=== PATIENT | female | born 1975 | race Hispanic/Latino ===

== ENCOUNTER → 2016-05-04 | Outpatient (CLI) | payer OTHER ==
[~2016-05-04] MED LIST: DRIS50002 PO; FERR325T PO; FLAG500T PO; FLUO10CA8 PO; IBUP60TA PO; MAGN250T14 PO; SUBO8MIS SL; VANC1CAP6 PO; WELLTAB38 PO; ZOFR4TAB3 PO
== END ==
LOC: M SMT 13:15
PROVIDERS: ATTEND Obstetrics & Gynecology
DX: O09.511 Supervision of elderly primigravida, first trimester (principal); Z3A.09 9 weeks gestation of pregnancy

== ENCOUNTER → 2016-05-10 | Outpatient (CLI) | payer OTHER ==
[2016-05-10 13:45] LABS: BASO % 0.4 % (0.0-1.0); EOS # 0.2 K/mm3 (0.0-0.50); EOS % 2.8 % (0.0-3.0); LARGE UNSTAINED CELL # 0.1 K/mm3 (0.0-0.4); LARGE UNSTAINED CELL % 2.3 % (0.0-4.0); LYMPH # 1.4 K/mm3 (1.5-4.5); LYMPH % 25.5 % (24.0-44.0); MEAN CORPUSCULAR HEMOGLOBIN 29.1 pg (27.0-33.0); MEAN CORPUSCULAR HGB CONC 33.1 g/dl (32.0-36.5); MEAN CORPUSCULAR VOLUME 87.9 fl (80.0-96.0); MONO # 0.3 K/mm3 (0.0-0.8); MONO % 5.2 % (0.0-5.0); NEUTROPHILS # 3.4 K/mm3 (1.8-7.7); NEUTROPHILS % 63.9 % (36.0-66.0); PLATELET COUNT, AUTOMATED 212 k/mm3 (150-450); RED CELL DISTRIBUTION WIDTH 15.5 % (11.5-14.5); WHITE BLOOD COUNT 5.3 K/mm3 (4.0-10.0)
[2016-05-10 14:57] LABS: HBsAg Prenatal NEGATIVE (NEGATIVE)
[2016-05-11 12:36] LABS: HIV SCRN NEGATIVE (NEGATIVE); HIV SCRN1 NEGATIVE (NEGATIVE)
[2016-05-11 12:37] LABS: CONTROL LINE INT CTR LINE PRESENT
== END ==
LOC: M SMT 10:35
PROVIDERS: ATTEND Obstetrics & Gynecology
DX: Z34.81 Encounter for supervision of other normal pregnancy, first trimester (principal)

== ENCOUNTER 2016-05-12 16:17 | Emergency (ER) | payer OTHER ==
[2016-05-12 17:44] LABS: BASO # 0.1 K/mm3 (0.0-0.2); BASO % 0.9 % (0.0-1.0); EOS # 0.3 K/mm3 (0.0-0.50); EOS % 3.8 % (0.0-3.0); LARGE UNSTAINED CELL # 0.1 K/mm3 (0.0-0.4); LARGE UNSTAINED CELL % 1.5 % (0.0-4.0); LYMPH # 1.8 K/mm3 (1.5-4.5); LYMPH % 20.2 % (24.0-44.0); MEAN CORPUSCULAR HEMOGLOBIN 28.8 pg (27.0-33.0); MEAN CORPUSCULAR HGB CONC 34.2 g/dl (32.0-36.5); MEAN CORPUSCULAR VOLUME 84.3 fl (80.0-96.0); MONO # 0.4 K/mm3 (0.0-0.8); MONO % 4.3 % (0.0-5.0); NEUTROPHILS # 5.8 K/mm3 (1.8-7.7); NEUTROPHILS % 69.3 % (36.0-66.0); PLATELET COUNT, AUTOMATED 217 k/mm3 (150-450); RED CELL DISTRIBUTION WIDTH 16.6 % (11.5-14.5); WHITE BLOOD COUNT 8.4 K/mm3 (4.0-10.0)
--- NOTE | 2016-05-12 19:00 | REPUSA ---
CLINICAL HISTORY: Vaginal spotting. TECHNIQUE: Realtime sonographic images were obtained in multiple projections. FINDINGS: There is a single intrauterine gestation. The biparietal diameter measures 2.5 cm. This corresponds to a gestational age of 14 weeks 2 days. The abdominal circumference and femur length measure 7.3 cm and 1.5 cm, respectively, and are relativ jordi proportionate to the BPD. The HC-AC ratio is normal. The composite age is 14 weeks 2 days . Estimated weight based on BPD and AC is 92 grams. heart motion was observed. The heart rate is 152 beats per minute. The placenta is anterior and free of the cervical os. The amniotic fluid volume is normal. IMPRESSION: 1. Single, live, intrauterine gestation with a composite gestational age of 14 weeks and 2 days. 2. Estimated date of delivery is 11/08/16. Thank you for your kind referral of this patient. We appreciate the opportunity to participate in thi s patient's care.
--- NOTE | 2016-05-12 19:14 | EDDOCDS ---
Nurse's Notes [facility] Name: Asia Bonner Age: 40 yrs Sex: Female : 1975 Arrival Date: 05/12/2016 Time: 16:17 Bed I2 / M2 Private MD: Tiffani Pires Diagnosis: related conditions, unspecified, second trimester Presentation: 05/12 16:23 Presenting complaint: Patient states: 15 weeks , spotty vaginal bleeding began mlb1 today. Risk factors: The patient reports no loss of conciousness prior to arrival. This patient has not had a hysterectomy. This patient has not begun menopause. Adult Sepsis Screening: The patient does not have new or worsening altered mentation. Patient's respiratory rate is less than 22. Systolic blood pressure is greater than 100. Patient has a qSOFA score of 0- Negative Sepsis Screen. Suicide/Homicide risk assessment- the patient denies having any suicidal and/or homicidal ideations and does not present with any other emotional, behavioral or mental health complaints. Status: Patient is not a rehabilitation services manager or dependent. Transition of care: patient was not received from another setting of care. 16:23 Acuity: REAL Level 3 mlb1 16:23 Method Of Arrival: Walkin/Carried/Asstd mlb1 Triage Assessment: 16:26 General: Appears in no apparent distress, Behavior is anxious, cooperative. Pain: mlb1 Denies pain. Pt Declines HIV testing. : Reports vaginal bleeding that is spotty. Derm: No deficits noted. 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 Suboxone 12-3 mg SL film 1 film once daily 2. Prozac 30 mg Oral once daily 3. Wellbutrin Unknown Oral daily 4. Oral 1 tablet daily - PMHx: Ovarian cyst; psoriatic arthritis; - PSHx: Back surgery; Skin grafts; - Social history: Smoking status: Patient states former smoker of tobacco. No barriers to communication noted, The patient speaks fluent Upper Sorbian, Speaks appropriately for age. - Family history: Not pertinent. - : The pt / caregiver states he / she is not on anticoagulants. Home medication list is obtained from the patient. - Exposure Risk Screening:: None identified. Screenin:32 Screening information is obtained from the patient. Fall risk: No risks identified. ck1 Assistance ADL's: requires no assistance with activities of daily living. Abuse/DV Screen: The patient / caregiver reports he/she is: not in a situation that causes fear, pain or injury. Nutritional screening: No deficits noted. Advance Directives: Currently, there is no health care proxy. home support is adequate. Assessment: 17:31 General: Appears in no apparent distress, comfortable, Behavior is appropriate for age, ck1 cooperative. Pain: Location: pelvis Pain currently is 6 out of 10 on a pain scale. Quality of pain is described as crampy. Neurological: No deficits noted. : Reports vaginal bleeding that is spotty. Derm: Skin is intact, is healthy with good turgor, Skin is pink, warm & dry. 19:12 General: Appears in no apparent distress, comfortable, Behavior is appropriate for age, ck1 cooperative. Pain: Denies pain. Neurological: Level of Consciousness is awake, alert, obeys commands, Oriented to person, place, time. Respiratory: No deficits noted. : Reports vaginal bleeding that is spotty. Derm: Skin is intact, is healthy with good turgor, Skin is pink, warm & dry. Vital Signs: 16:19 BP 134 / 73; Pulse 99; Resp 16; Temp 98.2(O); Pulse Ox 99% ; Weight 70.31 kg; Height 5 cmb ft. 2 in. (157.48 cm); Pain 6/10; 19:08 BP 123 / 59; Pulse 72; Resp 18; Temp 99.6; Pulse Ox 96% ; Pain 0/10; ajs 16:19 Body Mass Index 28.35 (70.31 kg, 157.48 cm) [facility] Vitals: 16:19 Log In Time: May 12, 2016 at 16:17. [facility] ED Course: 16:19 Patient visited by Alyx Silva. b 16:19 Tiffani Pires is Private Physician. cmb 16:19 Patient moved to Waiting cmb 16:21 RN notified that patient meets Red Flag criteria. cmb 16:22 Patient moved to Pre RCE cmb 16:23 Patient visited by Ander Aguila RN. mlb1 16:23 Triage Initiated mlb1 16:26 Patient visited by Ander Aguila RN. mlb1 16:56 Patient moved to Triage 2 jf3 17:10 Isai Barton PA-C is PHCP. ar2 17:10 Negro Rodriguez MD is Attending Physician. ar2 17:10 Patient visited by Isai Barton PA-C. ar2 17:20 Patient moved to I2 / M2 mlb1 17:26 Patient visited by Sully Barbosa,ANICETO. ck1 17:31 Urine Culture Sent. rs6 17:31 UA Sent. rs6 17:31 Rh Only Sent. ck1 17:31 CBC with Diff Sent. ck1 17:32 The patient / caregiver is instructed regarding the plan of care and ED course. ck1 17:32 No IV's were initiated during this patient's visit. ck1 17:46 Patient moved to Ultrasound am17 17:53 Assist provider with pelvic exam: Set up pelvic tray. Specimens sent to lab. Performed kc3 by Isai Barton PA-C Patient tolerated well. 17:55 GC & Chlamydia Amplification Sent. kc3 17:55 Wet Prep Sent. kc3 18:03 Patient moved to I2 / M2 am17 18:05 Patient visited by Sully Barbosa RN. ck1 18:06 PHCP role handed off by Isai Barton PA-C btw 18:06 Brennen Lion PA is PHCP. btw 18:27 [facility] Payment Agreement was scanned into makemoji and attached to record. gjb 18:38 Patient visited by Sully Barbosa RN. ck1 19:07 Lucrecia Odell MD is Referral Physician. btw Order Results: Lab Order: CBC with Diff; SPEC'M 05/12/16 17:31 Test: WHITE BLOOD COUNT; Value: 8.4; Range: 4.0-10.0; Units: K/mm3; Status: F Test: RED BLOOD COUNT; Value: 3.83; Range: 4.00-5.40; Abnormal: Below low normal; Units: M/mm3; Status: F Test: HEMOGLOBIN; Value: 11.0; Range: 12.0-16.0; Abnormal: Below low normal; Units: g/dl; Status: F Test: HEMATOCRIT; Value: 32.2; Range: 36.0-47.0; Abnormal: Below low normal; Units: %; Status: F Test: MEAN CORPUSCULAR VOLUME; Value: 84.3; Range: 80.0-96.0; Units: fl; Status: F Test: MEAN CORPUSCULAR HEMOGLOBIN; Value: 28.8; Range: 27.0-33.0; Units: pg; Status: F Test: MEAN CORPUSCULAR HGB CONC; Value: 34.2; Range: 32.0-36.5; Units: g/dl; Status: F Test: RED CELL DISTRIBUTION WIDTH; Value: 16.6; Range: 11.5-14.5; Abnormal: Above high normal; Units: %; Status: F Test: PLATELET COUNT, AUTOMATED; Value: 217; Range: 150-450; Units: k/mm3; Status: F Test: NEUTROPHILS %; Value: 69.3; Range: 36.0-66.0; Abnormal: Above high normal; Units: %; Status: F Test: LYMPH %; Value: 20.2; Range: 24.0-44.0; Abnormal: Below low normal; Units: %; Status: F Test: MONO %; Value: 4.3; Range: 0.0-5.0; Units: %; Status: F Test: EOS %; Value: 3.8; Range: 0.0-3.0; Abnormal: Above high normal; Units: %; Status: F Test: BASO %; Value: 0.9; Range: 0.0-1.0; Units: %; Status: F Test: LARGE UNSTAINED CELL %; Value: 1.5; Range: 0.0-4.0; Units: %; Status: F Test: NEUTROPHILS #; Value: 5.8; Range: 1.8-7.7; Units: K/mm3; Status: F Test: LYMPH #; Value: 1.8; Range: 1.5-4.5; Units: K/mm3; Status: F Test: MONO #; Value: 0.4; Range: 0.0-0.8; Units: K/mm3; Status: F Test: EOS #; Value: 0.3; Range: 0.0-0.50; Units: K/mm3; Status: F Test: BASO #; Value: 0.1; Range: 0.0-0.2; Units: K/mm3; Status: F Test: LARGE UNSTAINED CELL #; Value: 0.1; Range: 0.0-0.4; Units: K/mm3; Status: F Lab Order: Rh Only; SPEC'M 05/12/16 17:31 Test: RH; Value: POSITIVE; Status: F Lab Order: UA; SPEC'M 05/12/16 17:24 Test: APPEARANCE, URINE; Value: HAZY; Range: CLEAR; Status: F Test: COLOR, URINE; Value: YELLOW; Range: YELLOW; Status: F Test: PH,URINE; Value: 7.0; Range: 5.0-9.0; Units: UNITS; Status: F Test: SPECIFIC GRAVITY URINE AUTO; Value: 1.013; Range: 1.002-1.035; Status: F Test: PROTEIN, URINE AUTO; Value: NEGATIVE; Range: NEGATIVE; Units: mg/dL; Status: F Test: GLUCOSE, URINE (UA) AUTO; Value: NEGATIVE; Range: NEGATIVE; Units: mg/dL; Status: F Test: KETONE, URINE AUTO; Value: NEGATIVE; Range: NEGATIVE; Units: mg/dL; Status: F Test: UROBILINOGEN, URINE AUTO; Value: 0.2; Range: 0.0-2.0; Units: mg/dL; Status: F Test: BILIRUBIN, URINE AUTO; Value: NEGATIVE; Range: NEGATIVE; Status: F Test: NITRITE, URINE AUTO; Value: NEGATIVE; Range: NEGATIVE; Status: F Test: LEUKOCYTE ESTERASE, URINE AUTO; Value: TRACE; Range: NEGATIVE; Abnormal: Above high normal; Status: F Test: BLOOD, URINE BLOOD; Value: NEGATIVE; Range: NEGATIVE; Status: F Test: WBC, URINE AUTO; Value: 6; Range: 0-3; Abnormal: Above high normal; Units: /HPF; Status: F Test: RBC, URINE AUTO; Value: 13; Range: 0-3; Abnormal: Above high normal; Units: /HPF; Status: F Test: BACTERIA, URINE AUTO; Value: 1+; Range: NEGATIVE; Abnormal: Above high normal; Status: F Test: SQUAMOUS EPITHELIAL CELL UR AU; Value: 2; Range: 0-6; Units: /HPF; Status: F Test: MUCUS, URINE; Value: SMALL; Range: NEGATIVE; Status: F Test: HYALINE CAST, URINE AUTO; Value: 0; Range: 0-1; Units: /LPF; Status: F Lab Order: Wet Prep; SPEC'M 05/12/16 17:53 Test: WET PREP; Value: WET PREP RESULT; Status: F Test: WET PREP; Value: MANY EPITHELIAL CELLS PRESENT; Status: F Test: WET PREP; Value: MANY WBC; Status: F Test: WET PREP; Value: MANY LONG RODS PRESENT; Status: F Test: WET PREP; Value: MANY SHORT RODS PRESENT; Status: F Outcome: 19:08 Discharge ordered by Provider. btw 19:11 Discharge Assessment: Patient awake, alert and oriented x 3. No cognitive and/or ck1 functional deficits noted. Patient verbalized understanding of disposition instructions. patient administered narcotics - no. The following High Risk Discharge criteria are identified: None. Condition: stable. Property :Personal belongings accompany Pt. 19:11 Ultrasound Study completed. ck1 19:13 Patient left the ED. ck1 Signatures: Ander Aguila RN RN mlb1 Sully BarbosaRN RN ck1 Isai Barton PA-C PA-C ar2 Brennen Lion PA PA btw Radha Espino [place] cmb Moran, Ashley am17 Rubi Siegel, TONA ORE TESTER rs6 Janina Weber RN RN kc3 Job Massey RN RN jf3 Ruth Ayala MTDD
--- NOTE | 2016-05-12 19:14 | EDDOCDS ---
Physician Documentation [facility] Name: Asia Bonner Age: 40 yrs Sex: Female : 1975 Arrival Date: 05/12/2016 Time: 16:17 Bed I2 / M2 Private MD: Tiffani Pires Disposition: 05/12/16 19:08 Discharged to Home/Self Care. Impression: related conditions, unspecified, second trimester. - Condition is Stable. - Discharge Instructions: Abdominal Pain During , [id number], Second Trimester of , Zrrh-cw-Bsss. - Medication Reconciliation, Local Pharmacy Hours form. - Follow up: Lucrecia Odell MD; When: 2 - 3 days; Reason: Further diagnostic work-up, Recheck today's complaints, Continuance of care. - Problem is new. - Symptoms are unchanged. Historical: - Allergies: Latex (Rash); SULFA (SULFONAMIDES) (Swelling); - Home Meds: 1. Suboxone 12-3 mg SL film 1 film once daily 2. Prozac 30 mg Oral once daily 3. Wellbutrin Unknown Oral daily 4. Oral 1 tablet daily - PMHx: Ovarian cyst; psoriatic arthritis; - PSHx: Back surgery; Skin grafts; - Social history: Smoking status: Patient states former smoker of tobacco. No barriers to communication noted, The patient speaks fluent Cymraes, Speaks appropriately for age. - Family history: Not pertinent. - : The pt / caregiver states he / she is not on anticoagulants. Home medication list is obtained from the patient. - Exposure Risk Screening:: None identified. 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 2 in. (157.48 cm); Pain 6/10; 19:08 BP 123 / 59; Pulse 72; Resp 18; Temp 99.6; Pulse Ox 96% ; Pain 0/10; ajs 16:19 Body Mass Index 28.35 (70.31 kg, 157.48 cm) cmb MDM: 17:16 Undress patient appropriately for examination ordered. ar2 17:16 Set up pelvic ordered. ar2 17:17 CBC with Diff Ordered. EDMS 17:17 UA Ordered. EDMS 17:17 Urine Culture Ordered. EDMS 17:17 US Obs Single Gest Ordered. EDMS 17:17 Rh Only Ordered. EDMS 17:52 GC & Chlamydia Amplification Ordered. EDMS 17:53 Wet Prep Ordered. EDMS 18:15 CBC with Diff Reviewed. btw 18:15 UA Reviewed. btw 18:15 Rh Only Reviewed. btw 18:15 Wet Prep Reviewed. btw 18:26 Financial registration complete. gjb 18:27 [facility] Payment Agreement was scanned into Gig[employer] and attached to record. gjb Signatures: Dispatcher [employer] Ander Desai RN RN mlb1 Sully Barobsa RN RN ck1 Isai Barton PA-C PA-C ar2 Brennen Lion PA PA btw Beck, Gabriela gjb The chart was reviewed and I authenticate all verbal orders and agree with the evaluation and treatment provided.Attachments: 18:27 [facility] Payment Agreement gjb MTDD
--- NOTE | 2016-05-14 20:14 | EDDOCDS ---
Physician Documentation [facility] Name: Asia Bonner Age: 40 yrs Sex: Female : 1975 Arrival Date: 05/12/2016 Time: 16:17 Bed I2 / M2 Private MD: Tiffani Pires Disposition: 05/12/16 19:08 Discharged to Home/Self Care. Impression: related conditions, unspecified, second trimester. - Condition is Stable. - Discharge Instructions: Abdominal Pain During , Lzma-xj-[id number], Second Trimester of , Xcia-mc-Nwxr. - Medication Reconciliation, Local Pharmacy Hours form. - Follow up: Lucrecia Odell MD; When: 2 - 3 days; Reason: Further diagnostic work-up, Recheck today's complaints, Continuance of care. - Problem is new. - Symptoms are unchanged. Historical: - Allergies: Latex (Rash); SULFA (SULFONAMIDES) (Swelling); - Home Meds: 1. Suboxone 12-3 mg SL film 1 film once daily 2. Prozac 30 mg Oral once daily 3. Wellbutrin Unknown Oral daily 4. Oral 1 tablet daily - PMHx: Ovarian cyst; psoriatic arthritis; - PSHx: Back surgery; Skin grafts; - Social history: Smoking status: Patient states former smoker of tobacco. No barriers to communication noted, The patient speaks fluent Czech, Speaks appropriately for age. - Family history: Not pertinent. - : The pt / caregiver states he / she is not on anticoagulants. Home medication list is obtained from the patient. - Exposure Risk Screening:: None identified. 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 2 in. (157.48 cm); Pain 6/10; 19:08 BP 123 / 59; Pulse 72; Resp 18; Temp 99.6; Pulse Ox 96% ; Pain 0/10; ajs 16:19 Body Mass Index 28.35 (70.31 kg, 157.48 cm) cmb MDM: 17:16 Undress patient appropriately for examination ordered. ar2 17:16 Set up pelvic ordered. ar2 17:17 CBC with Diff Ordered. EDMS 17:17 UA Ordered. EDMS 17:17 Urine Culture Ordered. EDMS 17:17 US Obs Single Gest Ordered. EDMS 17:17 Rh Only Ordered. EDMS 17:52 GC & Chlamydia Amplification Ordered. EDMS 17:53 Wet Prep Ordered. EDMS 18:15 CBC with Diff Reviewed. btw 18:15 UA Reviewed. btw 18:15 Rh Only Reviewed. btw 18:15 Wet Prep Reviewed. btw 18:26 Financial registration complete. b : [facility] Payment Agreement was scanned into autoGraph and attached to record. b 05/13 10: T-Sheet-- Draft Copy was scanned into autoGraph and attached to record. gb 11: Radiology Report was scanned into autoGraph and attached to record. gb Signatures: Dispatcher [employer] EDKelly Evans, Reg Reg gb Ander Aguila RN RN mlb1 Sully BarbosaRN RN ck1 Isai Barton PA-C PAErrol ar2 Brennen Lion PA PA btw Beck, Gabriela gjb The chart was reviewed and I authenticate all verbal orders and agree with the evaluation and treatment provided.Attachments: 05/12 17: [facility] Payment Agreement [facility] 05/13 11:42 T-Sheet-- Draft Copy gb Chart Complete MTDD
--- NOTE | 2016-05-14 20:14 | EDDOCDS ---
Nurse's Notes [facility] Name: Asia Bonner Age: 40 yrs Sex: Female : 1975 Arrival Date: 05/12/2016 Time: 16:17 Bed I2 / M2 Private MD: Tiffani Pires Diagnosis: related conditions, unspecified, second trimester Presentation: 05/12 16:23 Presenting complaint: Patient states: 15 weeks , spotty vaginal bleeding began mlb1 today. Risk factors: The patient reports no loss of conciousness prior to arrival. This patient has not had a hysterectomy. This patient has not begun menopause. Adult Sepsis Screening: The patient does not have new or worsening altered mentation. Patient's respiratory rate is less than 22. Systolic blood pressure is greater than 100. Patient has a qSOFA score of 0- Negative Sepsis Screen. Suicide/Homicide risk assessment- the patient denies having any suicidal and/or homicidal ideations and does not present with any other emotional, behavioral or mental health complaints. 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 Transition of care: patient was not received from another setting of care. 16:23 Acuity: REAL Level 3 mlb1 16:23 Method Of Arrival: Walkin/Carried/Asstd mlb1 Triage Assessment: 16:26 General: Appears in no apparent distress, Behavior is anxious, cooperative. Pain: mlb1 Denies pain. Pt Declines HIV testing. : Reports vaginal bleeding that is spotty. Derm: No deficits noted. 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 Suboxone 12-3 mg SL film 1 film once daily 2. Prozac 30 mg Oral once daily 3. Wellbutrin Unknown Oral daily 4. Oral 1 tablet daily - PMHx: Ovarian cyst; psoriatic arthritis; - PSHx: Back surgery; Skin grafts; - Social history: Smoking status: Patient states former smoker of tobacco. No barriers to communication noted, The patient speaks fluent Slovenian, Speaks appropriately for age. - Family history: Not pertinent. - : The pt / caregiver states he / she is not on anticoagulants. Home medication list is obtained from the patient. - Exposure Risk Screening:: None identified. Screenin:32 Screening information is obtained from the patient. Fall risk: No risks identified. ck1 Assistance ADL's: requires no assistance with activities of daily living. Abuse/DV Screen: The patient / caregiver reports he/she is: not in a situation that causes fear, pain or injury. Nutritional screening: No deficits noted. Advance Directives: Currently, there is no health care proxy. home support is adequate. Assessment: 17:31 General: Appears in no apparent distress, comfortable, Behavior is appropriate for age, ck1 cooperative. Pain: Location: pelvis Pain currently is 6 out of 10 on a pain scale. Quality of pain is described as crampy. Neurological: No deficits noted. : Reports vaginal bleeding that is spotty. Derm: Skin is intact, is healthy with good turgor, Skin is pink, warm & dry. 19:12 General: Appears in no apparent distress, comfortable, Behavior is appropriate for age, ck1 cooperative. Pain: Denies pain. Neurological: Level of Consciousness is awake, alert, obeys commands, Oriented to person, place, time. Respiratory: No deficits noted. : Reports vaginal bleeding that is spotty. Derm: Skin is intact, is healthy with good turgor, Skin is pink, warm & dry. Vital Signs: 16:19 BP 134 / 73; Pulse 99; Resp 16; Temp 98.2(O); Pulse Ox 99% ; Weight 70.31 kg; Height 5 cmb ft. 2 in. (157.48 cm); Pain 6/10; 19:08 BP 123 / 59; Pulse 72; Resp 18; Temp 99.6; Pulse Ox 96% ; Pain 0/10; ajs 16:19 Body Mass Index 28.35 (70.31 kg, 157.48 cm) [facility] Vitals: 16:19 Log In Time: May 12, 2016 at 16:17. [facility] ED Course: 16:19 Patient visited by Alyx Silva. b 16:19 Tiffani Pires is Private Physician. cmb 16:19 Patient moved to Waiting cmb 16:21 RN notified that patient meets Red Flag criteria. cmb 16:22 Patient moved to Pre RCE cmb 16:23 Patient visited by Ander Aguila RN. mlb1 16:23 Triage Initiated mlb1 16:26 Patient visited by Ander Aguila RN. mlb1 16:56 Patient moved to Triage 2 jf3 17:10 Isai Barton PA-C is PHCP. ar2 17:10 Negro Rodriguez MD is Attending Physician. ar2 17:10 Patient visited by Isai Barton PA-C. ar2 17:20 Patient moved to I2 / M2 mlb1 17:26 Patient visited by Sully Barbosa,ANICETO. ck1 17:31 Urine Culture Sent. rs6 17:31 UA Sent. rs6 17:31 Rh Only Sent. ck1 17:31 CBC with Diff Sent. ck1 17:32 The patient / caregiver is instructed regarding the plan of care and ED course. ck1 17:32 No IV's were initiated during this patient's visit. ck1 17:46 Patient moved to Ultrasound am17 17:53 Assist provider with pelvic exam: Set up pelvic tray. Specimens sent to lab. Performed kc3 by Isai Barton PA-C Patient tolerated well. 17:55 GC & Chlamydia Amplification Sent. kc3 17:55 Wet Prep Sent. kc3 18:03 Patient moved to I2 / M2 am17 18:05 Patient visited by Sully Barbosa,ANICETO. ck1 18:06 PHCP role handed off by Isai Barton PA-C btw 18:06 Brennen Lion PA is PHCP. btw 18:27 [facility] Payment Agreement was scanned into Viveve and attached to record. gjb 18:38 Patient visited by Sully Barbosa RN. ck1 19:07 Lucrecia Odell MD is Referral Physician. btw 19:19 US Obs Single Gest Returned. EDMS 05/13 11:42 T-Sheet-- Draft Copy was scanned into Viveve and attached to record. gb 11:42 Radiology Report was scanned into Viveve and attached to record. gb Order Results: Lab Order: CBC with Diff; SPEC'M 05/12/16 17:31 Test: WHITE BLOOD COUNT; Value: 8.4; Range: 4.0-10.0; Units: K/mm3; Status: F Test: RED BLOOD COUNT; Value: 3.83; Range: 4.00-5.40; Abnormal: Below low normal; Units: M/mm3; Status: F Test: HEMOGLOBIN; Value: 11.0; Range: 12.0-16.0; Abnormal: Below low normal; Units: g/dl; Status: F Test: HEMATOCRIT; Value: 32.2; Range: 36.0-47.0; Abnormal: Below low normal; Units: %; Status: F Test: MEAN CORPUSCULAR VOLUME; Value: 84.3; Range: 80.0-96.0; Units: fl; Status: F Test: MEAN CORPUSCULAR HEMOGLOBIN; Value: 28.8; Range: 27.0-33.0; Units: pg; Status: F Test: MEAN CORPUSCULAR HGB CONC; Value: 34.2; Range: 32.0-36.5; Units: g/dl; Status: F Test: RED CELL DISTRIBUTION WIDTH; Value: 16.6; Range: 11.5-14.5; Abnormal: Above high normal; Units: %; Status: F Test: PLATELET COUNT, AUTOMATED; Value: 217; Range: 150-450; Units: k/mm3; Status: F Test: NEUTROPHILS %; Value: 69.3; Range: 36.0-66.0; Abnormal: Above high normal; Units: %; Status: F Test: LYMPH %; Value: 20.2; Range: 24.0-44.0; Abnormal: Below low normal; Units: %; Status: F Test: MONO %; Value: 4.3; Range: 0.0-5.0; Units: %; Status: F Test: EOS %; Value: 3.8; Range: 0.0-3.0; Abnormal: Above high normal; Units: %; Status: F Test: BASO %; Value: 0.9; Range: 0.0-1.0; Units: %; Status: F Test: LARGE UNSTAINED CELL %; Value: 1.5; Range: 0.0-4.0; Units: %; Status: F Test: NEUTROPHILS #; Value: 5.8; Range: 1.8-7.7; Units: K/mm3; Status: F Test: LYMPH #; Value: 1.8; Range: 1.5-4.5; Units: K/mm3; Status: F Test: MONO #; Value: 0.4; Range: 0.0-0.8; Units: K/mm3; Status: F Test: EOS #; Value: 0.3; Range: 0.0-0.50; Units: K/mm3; Status: F Test: BASO #; Value: 0.1; Range: 0.0-0.2; Units: K/mm3; Status: F Test: LARGE UNSTAINED CELL #; Value: 0.1; Range: 0.0-0.4; Units: K/mm3; Status: F Lab Order: Rh Only; SPEC'M 05/12/16 17:31 Test: RH; Value: POSITIVE; Status: F Lab Order: UA; SPEC'M 05/12/16 17:24 Test: APPEARANCE, URINE; Value: HAZY; Range: CLEAR; Status: F Test: COLOR, URINE; Value: YELLOW; Range: YELLOW; Status: F Test: PH,URINE; Value: 7.0; Range: 5.0-9.0; Units: UNITS; Status: F Test: SPECIFIC GRAVITY URINE AUTO; Value: 1.013; Range: 1.002-1.035; Status: F Test: PROTEIN, URINE AUTO; Value: NEGATIVE; Range: NEGATIVE; Units: mg/dL; Status: F Test: GLUCOSE, URINE (UA) AUTO; Value: NEGATIVE; Range: NEGATIVE; Units: mg/dL; Status: F Test: KETONE, URINE AUTO; Value: NEGATIVE; Range: NEGATIVE; Units: mg/dL; Status: F Test: UROBILINOGEN, URINE AUTO; Value: 0.2; Range: 0.0-2.0; Units: mg/dL; Status: F Test: BILIRUBIN, URINE AUTO; Value: NEGATIVE; Range: NEGATIVE; Status: F Test: NITRITE, URINE AUTO; Value: NEGATIVE; Range: NEGATIVE; Status: F Test: LEUKOCYTE ESTERASE, URINE AUTO; Value: TRACE; Range: NEGATIVE; Abnormal: Above high normal; Status: F Test: BLOOD, URINE BLOOD; Value: NEGATIVE; Range: NEGATIVE; Status: F Test: WBC, URINE AUTO; Value: 6; Range: 0-3; Abnormal: Above high normal; Units: /HPF; Status: F Test: RBC, URINE AUTO; Value: 13; Range: 0-3; Abnormal: Above high normal; Units: /HPF; Status: F Test: BACTERIA, URINE AUTO; Value: 1+; Range: NEGATIVE; Abnormal: Above high normal; Status: F Test: SQUAMOUS EPITHELIAL CELL UR AU; Value: 2; Range: 0-6; Units: /HPF; Status: F Test: MUCUS, URINE; Value: SMALL; Range: NEGATIVE; Status: F Test: HYALINE CAST, URINE AUTO; Value: 0; Range: 0-1; Units: /LPF; Status: F Lab Order: Urine Culture; SPEC'M 05/12/16 17:24 Test: URINE CULTURE; Value: URINE CULTURE RESULT NO GROWTH CLINICAL SIGNIFICANCE 1 ORGANISM; Status: F Lab Order: Wet Prep; SPEC'M 05/12/16 17:53 Test: WET PREP; Value: WET PREP RESULT; Status: F Test: WET PREP; Value: MANY EPITHELIAL CELLS PRESENT; Status: F Test: WET PREP; Value: MANY WBC; Status: F Test: WET PREP; Value: MANY LONG RODS PRESENT; Status: F Test: WET PREP; Value: MANY SHORT RODS PRESENT; Status: F Lab Order: GC & Chlamydia Amplification; SPEC'M 05/12/16 17:53 Test: CHLAMYDIA DNA AMPLIFICATION; Value: NEGATIVE; Range: NEGATIVE; Status: F Test: GC DNA AMPLIFICATION; Value: NEGATIVE; Range: NEGATIVE; Status: F Radiology Order: US Obs Single Gest Test: US Obs Single Gest REASON FOR EXAMINATION: cramping, vaginal bleeding; ; CLINICAL HISTORY: Vaginal spotting.; ; TECHNIQUE: Realtime sonographic images were obtained in multiple projections.; ; FINDINGS:; There is a single intrauterine gestation.; ; The biparietal diameter measures 2.5 cm. This corresponds to a gestational age of 14 weeks 2 days.; The abdominal circumference and femur length measure 7.3 cm and 1.5 cm, respectively, and are relativ; jordi proportionate to the BPD. The HC-AC ratio is normal. The composite age is 14 weeks 2 days; .; ; Estimated weight based on BPD and AC is 92 grams.; ; heart motion was observed. The heart rate is 152 beats per minute.; ; The placenta is anterior and free of the cervical os.; ; The amniotic fluid volume is normal.; ; IMPRESSION:; 1. Single, live, intrauterine gestation with a composite gestational age of 14 weeks and 2 days.; 2. Estimated date of delivery is 11/08/16.; ; ; Thank you for your kind referral of this patient. We appreciate the opportunity to participate in thi; s patient's care.; ; ; ; Outcome: 05/12 19:08 Discharge ordered by Provider. btw 19:11 Discharge Assessment: Patient awake, alert and oriented x 3. No cognitive and/or ck1 functional deficits noted. Patient verbalized understanding of disposition instructions. patient administered narcotics - no. The following High Risk Discharge criteria are identified: None. Condition: stable. Property :Personal belongings accompany Pt. 19:11 Ultrasound Study completed. ck1 19:13 Patient left the ED. ck1 Signatures: Dispatcher [employer] EDMS [place], [place] Reg Ander Dye RN RN mlb1 Sully Barbosa RN RN ck1 Isai Barton PA-C PA-Latosha ar2 Brennen Lion PA PA btw Radha Espino [place] cmb Tanisha Estrada am17 Rubi Siegel, CLINICAL SCIENCES PROFESSOR CLINICAL SCIENCES PROFESSOR rs6 Janina Weber,ANICETO RN [id number] Job Massey RN RN [id number] Ruth Ayala Chart Complete MTDD
--- NOTE | 2016-05-14 20:14 | EDDOCDS ---
Physician Documentation [facility] Name: Asia Bonner Age: 40 yrs Sex: Female : 1975 Arrival Date: 05/12/2016 Time: 16:17 Bed I2 / M2 Private MD: Tiffani Pires Disposition: 05/12/16 19:08 Discharged to Home/Self Care. Impression: related conditions, unspecified, second trimester. - Condition is Stable. - Discharge Instructions: Abdominal Pain During , [id number], Second Trimester of , [id number]. - Medication Reconciliation, Local Pharmacy Hours form. - Follow up: Lucrecia Odell MD; When: 2 - 3 days; Reason: Further diagnostic work-up, Recheck today's complaints, Continuance of care. - Problem is new. - Symptoms are unchanged. Historical: - Allergies: Latex (Rash); SULFA (SULFONAMIDES) (Swelling); - Home Meds: 1. Suboxone 12-3 mg SL film 1 film once daily 2. Prozac 30 mg Oral once daily 3. Wellbutrin Unknown Oral daily 4. Oral 1 tablet daily - PMHx: Ovarian cyst; psoriatic arthritis; - PSHx: Back surgery; Skin grafts; - Social history: Smoking status: Patient states former smoker of tobacco. No barriers to communication noted, The patient speaks fluent Turkmen, Speaks appropriately for age. - Family history: Not pertinent. - : The pt / caregiver states he / she is not on anticoagulants. Home medication list is obtained from the patient. - Exposure Risk Screening:: None identified. [facility] ATTENDANT: 05/12 17:18 LMP 02/01/2016, Verified, EDC 11/07/2016, Gestational age from LMP: 14 weeks 3 mlb1 days Vital Signs: 16:19 BP 134 / 73; Pulse 99; Resp 16; Temp 98.2(O); Pulse Ox 99% ; Weight 70.31 kg / 155.01 cmb lbs; Height 5 ft. 2 in. (157.48 cm); Pain 6/10; 19:08 BP 123 / 59; Pulse 72; Resp 18; Temp 99.6; Pulse Ox 96% ; Pain 0/10; ajs 16:19 Body Mass Index 28.35 (70.31 kg, 157.48 cm) cmb MDM: 17:16 Undress patient appropriately for examination ordered. ar2 17:16 Set up pelvic ordered. ar2 17:17 CBC with Diff Ordered. EDMS 17:17 UA Ordered. EDMS 17:17 Urine Culture Ordered. EDMS 17:17 US Obs Single Gest Ordered. EDMS 17:17 Rh Only Ordered. EDMS 17:52 GC & Chlamydia Amplification Ordered. EDMS 17:53 Wet Prep Ordered. EDMS 18:15 CBC with Diff Reviewed. btw 18:15 UA Reviewed. btw 18:15 Rh Only Reviewed. btw 18:15 Wet Prep Reviewed. btw 18:26 Financial registration complete. b : [facility] Payment Agreement was scanned into Flipaste and attached to record. b 05/13 10: T-Sheet-- Draft Copy was scanned into Flipaste and attached to record. gb 11: Radiology Report was scanned into Flipaste and attached to record. gb Signatures: Dispatcher [employer] EDKelly Evans, Reg Reg gb Ander Aguila RN RN mlb1 Sully BarbosaRN RN ck1 Isai Barton PA-C PAErrol ar2 Brennen Lion PA PA btw Beck, Gabriela gjb The chart was reviewed and I authenticate all verbal orders and agree with the evaluation and treatment provided.Attachments: 05/12 17: [facility] Payment Agreement [facility] 05/13 11:42 T-Sheet-- Draft Copy gb Chart Complete MTDD
== END 2016-05-12 19:13 | disposition home or self-care (01) ==
LOC: M ED 16:17
DX: O26.892 Other specified pregnancy related conditions, second trimester (principal); Z3A.14 14 weeks gestation of pregnancy; O09.512 Supervision of elderly primigravida, second trimester; O99.712 Diseases of the skin and subcutaneous tissue complicating pregnancy, second trimester; Z87.891 Personal history of nicotine dependence; Z79.899 Other long term (current) drug therapy; Z91.040 Latex allergy status; Z88.2 Allergy status to sulfonamides

== ENCOUNTER → 2016-06-21 | Outpatient (CLI) | payer OTHER ==
--- NOTE | 2016-06-21 15:56 | REP ---
Clinical: Anatomical evaluation. Comparison: 05/12/2016 . Findings: Examination demonstrates a single live intrauterine in cephalic presentation. motion is identified by technologist. Placenta is noted anteriorly and grade one without evidence for placenta previa or abruption. Amniotic fluid volume is normal. Cervix measures 4.2 cm in length and appears closed. No evidence for nuchal cord. Gestational age by LMP 19 weeks 0 days with BC 11/15/2016 . Gestational age by current measurements 19 weeks 3 days with BC 11/12/2016 . FHR equals 143 beats per minute. BPD 4.4 cm 19 weeks 2 days HC 16.9 cm 19 weeks 4 days AC 14.0 cm 19 weeks 3 days FL 3.0 cm 19 weeks 2 days HL 2.9 cm 19 weeks 3 days HC/AC ratio 1.21 Estimated weight 288 grams ( 60th percentile). Anatomical assessment demonstrates normal structures including cranium, choroid plexus, cavum, cerebellum/posterior fossa, lungs, four-chamber heart/ventricular outflow tracts, diaphragm, stomach, cord insertion/three-vessel cord, kidneys/bladder, and extremities. Impression: Single live intrauterine in cephalic presentation demonstrating appropriate oval growth. Limited evaluation of the spine and facial features noted. Remainder of the anatomical assessment is complete and normal. Signed by Yakov Alcala MD 06/21/2016 03:49 P
== END ==
LOC: M RAD 14:10
PROVIDERS: ATTEND Obstetrics & Gynecology
DX: Z34.82 Encounter for supervision of other normal pregnancy, second trimester (principal)

== ENCOUNTER → 2016-06-22 | Outpatient (CLI) | payer OTHER | LOC: M LAB 07:32 | PROVIDERS: ATTEND Obstetrics & Gynecology | DX: Z34.82 Encounter for supervision of other normal pregnancy, second trimester (principal) ==

== ENCOUNTER → 2016-08-10 | Outpatient (CLI) | payer OTHER ==
[2016-08-10 12:58] LABS: MEAN CORPUSCULAR HEMOGLOBIN 30.8 pg (27.0-33.0); MEAN CORPUSCULAR HGB CONC 34.2 g/dl (32.0-36.5); MEAN CORPUSCULAR VOLUME 90.3 fl (80.0-96.0); RED CELL DISTRIBUTION WIDTH 14.5 % (11.5-14.5); WHITE BLOOD COUNT 6.4 K/mm3 (4.0-10.0)
== END ==
LOC: M LAB 11:00
PROVIDERS: ATTEND Obstetrics & Gynecology
DX: Z34.82 Encounter for supervision of other normal pregnancy, second trimester (principal)

== ENCOUNTER → 2016-10-19 | Outpatient (REF) | payer OTHER | LOC: M LAB REF 17:01 | PROVIDERS: ATTEND Specialist | DX: O09.523 Supervision of elderly multigravida, third trimester (principal); Z3A.00 Weeks of gestation of pregnancy not specified ==

== ENCOUNTER 2016-11-03 11:37 | Inpatient (IN) | payer OTHER ==
[~2016-11-03] VITALS: Ht 157.5 cm; Wt 87.0 kg
[~2016-11-03 11:37] MED LIST changes: +FERR1TAB8 PO; -FERR325T PO; +FLUoxetine 10 MG CAP PO SCH; +IBUP1TAB6 PO; -IBUP60TA PO
[2016-11-03 11:56] VITALS: BP 130/81
[2016-11-03] MEDS ORDERED: PRENTAB9 PO (12:03)
[2016-11-03] MEDS ORDERED: SUBO8MIS SL (12:03)
[2016-11-03] MEDS ORDERED: LACTATED RINGER'S 1000 ML IV STA (15:46)
[2016-11-03 15:52] VITALS: BP 122/68
[2016-11-03] MEDS: miSOPROStol 50 MCG 1/2 TAB (S0191) PO SCH ×2 (16:38→20:44)
--- NOTE | 2016-11-03 17:05 | HPE ---
DATE OF ADMISSION: 11/03/2016 Asia is a 41-year-old 2, para 1-0-0-1 at 38-2/7 weeks gestation with an EDC of 11/15/2016 based on first trimester ultrasound. She presents to labor and delivery today following a routine appointment at the office and noted to have a category II heart rate per EFM. She does deny regular contractions, leaking of fluid and vaginal bleeding at this time. Her fetus has been active. care was initiated at [facility] in the first trimester. course complicated by advanced maternal age and history of substance abuse, currently maintained on Suboxone therapy [address] Lucas. OBSTETRICAL HISTORY November 1996, at 42 weeks gestation she had a spontaneous vaginal delivery for 7 pounds 9 ounces male. OBSTETRICAL LABS: Blood type O+, antibody screen negative, rubella immune, VDRL nonreactive. Hep B surface antigen negative, HIV negative. Hep C antibody nonreactive. Gonorrhea, chlamydia negative. She did undergo [place] screening and noted low probability for aneuploidy with a female fetus. Gestational diabetic screening normal at 107. GBS is negative. PAST MEDICAL HISTORY: History of drug abuse, smoking. Childhood varicella. Anemia SURGERIES: Skin graft, tail bone removal. FAMILY HISTORY: Diabetes, hepatitis C. SOCIAL HISTORY: The patient is single. However of the father of the baby has been involved throughout the . She is a smoker report smoking approximately five cigarettes per day. Denies alcohol and drug use during and no history of sexually transmitted infections and denies history of abuse physical, sexual and emotional. ALLERGIES: SULFA AND LATEX CURRENT MEDICATIONS: Include vitamin, Suboxone 12 mg every morning and ferrous sulfate 325 twice a day. OBJECTIVE: Temperature 98.8, pulse 86, respirations 18, BP 130/81 upon arrival to labor and delivery. Alert and oriented times three in no apparent distress. heart rate is 125 with moderate variability, positive excels observed and noted variable decelerations. There is no pattern of regular contractions. Her abdomen is gravid, cephalic presentation. 7.5 pounds estimated weight. Sterile vaginal exam fingertip thick, posterior moderate texture. No bloody show with exam. ASSESSMENT: Intrauterine at 38-2/7 weeks gestation. heart rate category II, advanced maternal age, smoking throughout , Suboxone maintenance therapy. PLAN: Per consult and recommendation with Dr. Yanick Ontiveros. Admit patient o labor and delivery for induction of labor due to heart rate category II. Regular diet at this time. Labs including a urine drug screen. Intravenous (IV ) fluid bolus. I do no plan to start misoprostol 50 mcg by mouth every 4 hours for cervical ripening. I did review the risks and benefits of induction with the patient's and including but not limited to increase risk of section, intolerance of labor, expectant management been worsening condition. The patient has had all her questions answered regarding induction of labor and does desire to proceed. I do anticipate cervical ripening. MTDD
[2016-11-03 17:10] LABS: MEAN CORPUSCULAR HEMOGLOBIN 30.4 pg (27.0-33.0); MEAN CORPUSCULAR HGB CONC 34.4 g/dl (32.0-36.5); MEAN CORPUSCULAR VOLUME 88.4 fl (80.0-96.0); RED CELL DISTRIBUTION WIDTH 13.7 % (11.5-14.5); WHITE BLOOD COUNT 7.8 K/mm3 (4.0-10.0)
[2016-11-03] MEDS: FLUoxetine 10 MG CAP PO SCH (17:50)
[2016-11-03 19:17] VITALS: BP 123/76
[2016-11-03 20:34] VITALS: BP 112/55
[2016-11-03 22:54] VITALS: BP 124/69
[2016-11-03 23:58] VITALS: BP 109/55
[2016-11-04] VITALS (48 sets, daily range): BP systolic 100–136; BP diastolic 55–79
[2016-11-04] MEDS ORDERED: OXYTOCIN DRIP 30 UNITS in APPROPRIATE DILUENT 1 EA IV SCH (04:45)
[2016-11-04] MEDS: LR 1,000 ML IV SCH ×2 (05:45→10:20)
[2016-11-04] MEDS: BUPRENORPHINE/NALOXONE 8-2MG SUBLINGUAL TABLET(SUBOXONE) SL SCH (09:24)
[2016-11-04] MEDS: FLUoxetine 10 MG CAP PO SCH (09:24)
[2016-11-04] MEDS: DOCUSATE SODIUM 100 MG CAP PO SCH (09:24)
[2016-11-04] MEDS ORDERED: FENTANYL 2MCG/ML ROPIVACAINE 0.2% IN 0.9% NACL 200ML IVBAG As Ordered ONE (12:01)
[2016-11-04] MEDS ORDERED: EPIDURAL/PCA KEYS XX PRN (14:00)
[2016-11-04] MEDS ORDERED: ONDANSETRON 4MG/2ML VIAL (J2405) IV PRN (14:00)
[2016-11-04] MEDS ORDERED: ePHEDrine SULFATE 25 MG/5 ML(5MG/ML) SYRINGE IV PRN (14:00)
[2016-11-04] MEDS ORDERED: EPIDURAL COMMENT XX SCH (14:00)
[2016-11-04] MEDS ORDERED: REFRIGERATOR IV KEYS XX PRN (14:00)
[2016-11-04] MEDS ORDERED: diphenhydrAMINE INJ 50MG/ML VIAL (J1200) IV PRN (14:00)
[2016-11-04] MEDS ORDERED: NALOXONE INJ 0.4 MG/1 ML VIAL (J2310) IV PRN (14:00)
[2016-11-04] MEDS ORDERED: FENTANYL/ROPIVACAINE/NACL BAG 200 ML EPIDURAL SCH (14:00)
[2016-11-05] VITALS (21 sets, daily range): BP systolic 97–145; BP diastolic 55–75
[2016-11-05] MEDS: LR 1,000 ML IV SCH ×3 (04:37→11:48)
[2016-11-05] MEDS ORDERED: OXYTOCIN INJ 10 UNITS/ML VIAL (J2590) As Ordered ONE (07:13)
[2016-11-05] MEDS ORDERED: LIDOCAINE PRES-FREE 2% 10ML AMP As Ordered ONE (07:28)
[2016-11-05] MEDS ORDERED: ceFAZolin 2 GM/D5W 50 ML IV BAG (J0690) As Ordered ONE (07:41)
[2016-11-05] MEDS ORDERED: BICITRA 30ML SOLN UDC As Ordered ONE (07:41)
[2016-11-05] MEDS ORDERED: BICITRA 30ML SOLN UDC PO ONE (07:45)
[2016-11-05] MEDS ORDERED: MORPHINE PRES-FREE INJ 10 MG/10 ML VIAL (J2274) As Ordered ONE (07:55)
[2016-11-05] MEDS ORDERED: NALBUPHINE HCL 10 MG/ML AMP (J2300) IV PRN (08:02)
[2016-11-05] MEDS ORDERED: METOCLOPRAMIDE INJ 10MG/2ML VIAL (J2765) IV PRN ×2 (08:02→09:30)
[2016-11-05] MEDS ORDERED: NALOXONE INJ 0.4 MG/1 ML VIAL (J2310) IV PRN ×2 (08:02)
[2016-11-05] MEDS ORDERED: ONDANSETRON 4MG/2ML VIAL (J2405) IV PRN ×3 (08:02→09:30)
[2016-11-05] MEDS ORDERED: ePHEDrine SULFATE 25 MG/5 ML(5MG/ML) SYRINGE As Ordered ONE (08:24)
[2016-11-05] MEDS ORDERED: ONDANSETRON 4MG/2ML VIAL (J2405) As Ordered ONE (08:25)
[2016-11-05] MEDS ORDERED: METOCLOPRAMIDE INJ 10MG/2ML VIAL (J2765) As Ordered ONE (08:40)
[2016-11-05] MEDS ORDERED: KETOROLAC 60 MG/2 ML VIAL (J1885) As Ordered ONE (08:42)
[2016-11-05] MEDS: DOCUSATE SODIUM 100 MG CAP PO SCH (09:00)
[2016-11-05] MEDS ORDERED: MEASLES,MUMPS,RUBELLA VACCINE INJ (MMR-II) (90707) SC SCH (09:15)
[2016-11-05] MEDS ORDERED: RHOGAM 300 MCG (1500 IU) INJ (J2790) IM SCH (09:15)
[2016-11-05] MEDS ORDERED: LR 1,000 ML IV SCH (09:30)
[2016-11-05] MEDS ORDERED: PERCOCET 5MG/325MG TAB PO PRN (09:30)
[2016-11-05] MEDS ORDERED: fentaNYL 100 MCG/2 ML INJECTION (J3010) IV PRN (09:30)
[2016-11-05] MEDS: OXYTOCIN DRIP 30 UNITS in APPROPRIATE DILUENT 1 EA IV ONE ×2 (10:00→11:47)
[2016-11-05] MEDS: FLUoxetine 10 MG CAP PO SCH (10:44)
[2016-11-05] MEDS: BUPRENORPHINE/NALOXONE 8-2MG SUBLINGUAL TABLET(SUBOXONE) SL SCH (10:45)
[2016-11-05] MEDS: KETOROLAC 30 MG/ML VIAL (J1885) IV SCH ×2 (15:04→20:32)
[2016-11-05] MEDS: DOCUSATE SODIUM 100 MG CAP PO PRN (20:01)
[2016-11-06] MEDS: LR 1,000 ML IV SCH (01:11)
[2016-11-06 02:30] VITALS: BP 125/74
[2016-11-06] MEDS: KETOROLAC 30 MG/ML VIAL (J1885) IV SCH ×2 (03:17→09:34)
[2016-11-06 06:42] LABS: MEAN CORPUSCULAR HEMOGLOBIN 30.4 pg (27.0-33.0); MEAN CORPUSCULAR HGB CONC 34.4 g/dl (32.0-36.5); MEAN CORPUSCULAR VOLUME 88.5 fl (80.0-96.0); RED CELL DISTRIBUTION WIDTH 14.1 % (11.5-14.5); WHITE BLOOD COUNT 9.9 K/mm3 (4.0-10.0)
[2016-11-06 06:43] VITALS: BP 122/64
--- NOTE | 2016-11-06 07:33 | RO ---
DATE OF PROCEDURE: 11/05/2016 PREOPERATIVE DIAGNOSIS: 38 plus weeks, non-reassuring tracing, arrest of dilation. POSTOPERATIVE DIAGNOSIS: 38 plus weeks, non-reassuring tracing, arrest of dilation. PROCEDURE: Primary low transverse section. SURGEON: Joel Vasquez MD COFFEE FARMER: Milla Corado CNM ANESTHESIA: Spinal. ESTIMATED BLOOD LOSS: 500 mL. IV FLUIDS: 1000 mL. URINE OUTPUT: 100 mL. FINDINGS: 2584 gram or 5 pound 11 ounce female , scores 9 and 9, in the occiput posterior position. Nuchal cord times one. Normal uterus, fallopian tubes and ovaries. Small pedunculated fibroid in the anterior fundus of the uterus. DESCRIPTION OF PROCEDURE/OPERATIVE SUMMARY: The patient was taken to the operating room where spinal anesthesia was induced. She was prepped and draped in a sterile fashion in the supine position. A Antony catheter was already in place. A Pfannenstiel skin incision was made with a scalpel to get through to the fascia. The fascia was nicked and extended. The fascia was dissected off the rectus muscles. The rectus muscles were divided. The peritoneal cavity was entered. A bladder flap was created. A curvilinear incision was made in the lower uterine segment until clear fluid was noted. This was extended manually. The was delivered from the vertex position without difficulty. Shoulders delivered with ease. The infant was handed to the waiting nurses. The placenta was expressed. The uterus was exteriorized and cleared of clots and debris. The uterine incision was closed with #0 Vicryl in a running locked fashion. A second imbricating layer of #0 Vicryl was placed. The uterus was placed back in the abdominal cavity. The peritoneum was closed with #2-0 Vicryl. The fascia was closed with #0 Vicryl in a running fashion. The deep layer was irrigated and closed with #2-0 chromic. The skin was closed with #4-0 Monocryl. Sponge, instrument and needle counts were correct.
[2016-11-06] MEDS: PRENATAL VITAMINS CHEWABLE TABLET PO SCH (09:33)
[2016-11-06] MEDS: BUPRENORPHINE/NALOXONE 8-2MG SUBLINGUAL TABLET(SUBOXONE) SL SCH (09:34)
[2016-11-06 10:00] VITALS: BP 131/63
[2016-11-06] MEDS: FLUoxetine 10 MG CAP PO SCH (10:10)
[2016-11-06] MEDS ORDERED: MOM 30ML SUSPENSION UDC PO ONE (13:15)
[2016-11-06 14:00] VITALS: BP 132/66
[2016-11-06] MEDS: ACETAMINOPHEN 500 MG TAB PO PRN ×2 (15:21→21:30)
[2016-11-06] MEDS: IBUPROFEN 800 MG TAB PO SCH (17:10)
[2016-11-06 18:00] VITALS: BP 138/61
[2016-11-06] MEDS: DOCUSATE SODIUM 100 MG CAP PO PRN (21:29)
[2016-11-06 22:17] VITALS: BP 123/59
[2016-11-07] MEDS: IBUPROFEN 800 MG TAB PO SCH ×2 (00:06→09:01)
[2016-11-07 06:08] VITALS: BP 123/71
[2016-11-07] MEDS: BUPRENORPHINE/NALOXONE 8-2MG SUBLINGUAL TABLET(SUBOXONE) SL SCH (08:53)
[2016-11-07] MEDS: PRENATAL VITAMINS CHEWABLE TABLET PO SCH (08:53)
[2016-11-07] MEDS: FLUoxetine 10 MG CAP PO SCH (08:53)
[2016-11-07] MEDS: ACETAMINOPHEN 500 MG TAB PO PRN (15:13)
[2016-11-07] MEDS ORDERED: PROZ10CA7 PO (15:27)
[2016-11-07] MEDS ORDERED: ACET50TA PO (15:28)
[2016-11-10 10:22] LABS: GC Carboxy THC 188 ng/mL (Cutoff=10)
== END 2016-11-07 15:00 | disposition home or self-care (01) | DRG 540 ==
LOC: M LDO 11:37 → M LDI 15:33 → M OBS 11-05 11:11
PROVIDERS: ADMIT Advanced Practice Midwife; ATTEND Advanced Practice Midwife
PROC: 3E0DXGC Introduction of Other Therapeutic Substance into Mouth and Pharynx, External Approach (ICD-10-PCS; 2016-11-03)
PROC: 10907ZC Drainage of Amniotic Fluid, Therapeutic from Products of Conception, Via Natural or Artificial Opening (ICD-10-PCS; 2016-11-04)
PROC: 10D00Z1 Extraction of Products of Conception, Low, Open Approach (ICD-10-PCS; principal; 2016-11-05)
DX: O76 Abnormality in fetal heart rate and rhythm complicating labor and delivery (principal); F17.200 Nicotine dependence, unspecified, uncomplicated; Z37.0 Single live birth; Z3A.38 38 weeks gestation of pregnancy; O62.0 Primary inadequate contractions; O99.334 Smoking (tobacco) complicating childbirth; O09.523 Supervision of elderly multigravida, third trimester

== ENCOUNTER 2017-09-03 14:00 | Emergency (ER) | payer OTHER ==
[2017-09-03 15:27] LABS: MICROSCOPIC INDICATED? RFX YES (NO); SP GRAVITY,URINE MANUAL REFLEX 1.015 (1.002-1.035)
[2017-09-03 15:28] LABS: BILIRUBIN, URINE MANUAL NEGATIVE (NEGATIVE); BLOOD URINE MANUAL RFX POSITIVE (NEGATIVE); GLUCOSE, URINE (UA) MANUAL NEGATIVE (NEGATIVE); KETONE, URINE MANUAL 1+ mg/dL (NEGATIVE); NITRITE, URINE MANUAL RFX POSITIVE (NEGATIVE); PROTEIN, URINE MANUAL REFLEX TRACE mg/dL (NEGATIVE); UROBILINOGEN, URINE MANUAL NORMAL (NORMAL)
[2017-09-03] MEDS: ONDANSETRON 4MG/2ML VIAL (J2405) IV (15:52)
[2017-09-03] MEDS: NS 1,000 ML IV (15:52)
[2017-09-03] MEDS: KETOROLAC 30 MG/ML VIAL (J1885) IV (15:52)
[2017-09-03 15:55] LABS: BACTERIA, URINE LARGE AMOUNT; BASO # 0.1 10^3/uL (0.0-0.2); BASO % 0.7 % (0.0-1.0); EOS # 0.8 10^3/uL (0.0-0.50); EOS % 5.9 % (0.0-3.0); HEMATOCRIT 36.7 % (36.0-47.0); HEMOGLOBIN 12.3 g/dl (12.0-15.5); IMMATURE GRANULOCYTE % 0.3 % (0-3.0); LYMPH # 2.4 10^3/uL (1.5-4.5); LYMPH % 18.5 % (24.0-44.0); MEAN CORPUSCULAR HEMOGLOBIN 27.2 pg (27.0-33.0); MEAN CORPUSCULAR HGB CONC 33.5 g/dl (32.0-36.5); MONO # 0.6 10^3/uL (0.0-0.8); MONO % 4.9 % (0.0-5.0); NEUTROPHILS # 9.1 10^3/uL (1.8-7.7); NEUTROPHILS % 69.7 % (36.0-66.0); PLATELET COUNT, AUTOMATED 318 10^3/uL (150-450); RED BLOOD COUNT 4.53 10^6/uL (4.00-5.40); RED CELL DISTRIBUTION WIDTH 15.8 % (11.5-14.5); SQUAMOUS EPITHELIAL CELL URINE MOD AMOUNT /hpf (SMALL AMT)
[2017-09-03 15:56] LABS: MICROSCOPIC EXAM PERFORMED; MUCUS, URINE SMALL AMOUNT (NEGATIVE)
[2017-09-03 15:59] LABS: HYALINE CAST, URINE NONE SEEN /lpf (0-1)
[2017-09-03 16:24] LABS: ALBUMIN 3.4 GM/DL (3.2-5.2); ALBUMIN/GLOBULIN RATIO 0.83 (1.00-1.93); ALKALINE PHOSPHATASE 105 U/L (45-117); ALT/SGPT 18 U/L (12-78); ANION GAP 5 MEQ/L (8-16); AST/SGOT 18 U/L (7-37); BILIRUBIN,TOTAL 0.2 MG/DL (0.2-1.0); BLOOD UREA NITROGEN 11 MG/DL (7-18); CALCIUM LEVEL 8.4 MG/DL (8.5-10.1); CARBON DIOXIDE LEVEL 30 MEQ/L (21-32); CHLORIDE LEVEL 103 MEQ/L (98-107); CREATININE FOR GFR 0.68 MG/DL (0.55-1.30); GLOMERULAR FILTRATION RATE > 60.0 (>58); GLUCOSE, FASTING 100 MG/DL (70-100); LIPASE 50 U/L (73-393); POTASSIUM SERUM 3.8 MEQ/L (3.5-5.1); SODIUM LEVEL 138 MEQ/L (136-145); TOTAL PROTEIN 7.5 GM/DL (6.4-8.2)
[2017-09-03] MEDS: DICYCLOMINE 10 MG CAP PO (17:36)
[2017-09-03] MEDS: CIPROFLOXACIN 500 MG TAB PO (17:37)
[2017-09-03] MEDS: PHENAZOPYRIDINE 100 MG TAB PO (17:37)
== END 2017-09-03 17:42 | disposition home or self-care (01) ==
LOC: M ED 14:00
DX: K52.9 Noninfective gastroenteritis and colitis, unspecified (principal); N39.0 Urinary tract infection, site not specified; D25.9 Leiomyoma of uterus, unspecified; F11.20 Opioid dependence, uncomplicated; F41.9 Anxiety disorder, unspecified; Z87.42 Personal history of other diseases of the female genital tract; F17.200 Nicotine dependence, unspecified, uncomplicated; Z79.899 Other long term (current) drug therapy; Z91.040 Latex allergy status; Z88.2 Allergy status to sulfonamides
CPT/HCPCS: J2405

== ENCOUNTER 2017-09-28 17:54 | Emergency (ER) | payer OTHER ==
[~2017-09-28 17:54] MED LIST changes: -DRIS50002 PO; -FERR1TAB8 PO; -FLAG500T PO; -FLUO10CA8 PO; -FLUoxetine 10 MG CAP PO SCH; +GASTROGRAFIN SOLUTION 30ML (Q9963); -IBUP1TAB6 PO; -MAGN250T14 PO; -SUBO8MIS SL; -VANC1CAP6 PO; -WELLTAB38 PO; -ZOFR4TAB3 PO
[2017-09-28] MEDS ORDERED: ACETAMINOPHEN 325 MG TAB (21:56)
[2017-09-28] MEDS ORDERED: ONDANSETRON 4MG/2ML VIAL (J2405) (21:56)
[2017-09-28] MEDS ORDERED: POTASSIUM CHLORIDE 10 MEQ SR TABLET (21:56)
[2017-09-28] MEDS ORDERED: KETOROLAC 30 MG/ML VIAL (J1885) (21:56)
[2017-09-29 00:45] LABS: ALKALINE PHOSPHATASE 88 U/L (45-117); ALT/SGPT 19 U/L (12-78); ANION GAP 7 MEQ/L (8-16); AST/SGOT 15 U/L (7-37); BILIRUBIN,TOTAL 0.2 MG/DL (0.2-1.0); BLOOD UREA NITROGEN 9 MG/DL (7-18); CALCIUM LEVEL 8.2 MG/DL (8.5-10.1); CARBON DIOXIDE LEVEL 26 MEQ/L (21-32); CHLORIDE LEVEL 105 MEQ/L (98-107); GLOMERULAR FILTRATION RATE > 60.0 (>58); GLUCOSE, FASTING 107 MG/DL (70-100); POTASSIUM SERUM 3.2 MEQ/L (3.5-5.1); SODIUM LEVEL 138 MEQ/L (136-145); TOTAL PROTEIN 7.6 GM/DL (6.4-8.2)
[2017-09-29 00:46] LABS: ALBUMIN 3.6 GM/DL (3.2-5.2); CONTROL LINE HCG INT CTR LINE PRESENT; HCG, SERUM QUALITATIVE NEGATIVE (NEGATIVE); LIPASE 51 U/L (73-393)
[2017-09-29 01:58] LABS: HEMATOCRIT 38.9 % (36.0-47.0); HEMOGLOBIN 12.9 g/dl (12.0-15.5); MEAN CORPUSCULAR HEMOGLOBIN 27.2 pg (27.0-33.0); MEAN CORPUSCULAR HGB CONC 33.2 g/dl (32.0-36.5); MEAN CORPUSCULAR VOLUME 81.9 fl (80.0-96.0); PLATELET COUNT, AUTOMATED 266 10^3/uL (150-450); RED BLOOD COUNT 4.75 10^6/uL (4.00-5.40); RED CELL DISTRIBUTION WIDTH 15.8 % (11.5-14.5); WHITE BLOOD COUNT 12.5 10^3/uL (4.0-10.0)
[2017-09-29 02:12] LABS: APPEARANCE, URINE HAZY (CLEAR); BACTERIA, URINE AUTO NEGATIVE (NEGATIVE); BILIRUBIN, URINE AUTO NEGATIVE (NEGATIVE); BLOOD, URINE BLOOD 2+ (NEGATIVE); COLOR, URINE YELLOW (YELLOW); GLUCOSE, URINE (UA) AUTO NEGATIVE (NEGATIVE); KETONE, URINE AUTO TRACE mg/dL (NEGATIVE); LEUKOCYTE ESTERASE, URINE AUTO NEGATIVE (NEGATIVE); MUCUS, URINE SMALL (NEGATIVE); NITRITE, URINE AUTO NEGATIVE (NEGATIVE); PROTEIN, URINE AUTO 1+ mg/dL (NEGATIVE); RBC, URINE AUTO 19 /HPF (0-3); SPECIFIC GRAVITY URINE AUTO 1.015 (1.002-1.035); SQUAMOUS EPITHELIAL CELL UR AU 8 /HPF (0-6); UROBILINOGEN, URINE AUTO 0.2 mg/dL (0.0-2.0); WBC, URINE AUTO 3 /HPF (0-3)
[2017-09-29] MEDS: ONDANSETRON 4 MG ORAL DISINTEGRATING TAB (Q0162 PER 1MG) PO (03:00)
[2017-09-29] MEDS: CIPROFLOXACIN 500 MG TAB PO (03:08)
[2017-09-29] MEDS: metroNIDAZOLE (FLAGYL) 500 MG TAB PO (03:09)
[2017-09-29] MEDS: KETOROLAC TROMETHAMINE 10 MG TAB PO (03:09)
== END 2017-09-29 03:11 | disposition home or self-care (01) ==
LOC: M ED 17:54
DX: K52.9 Noninfective gastroenteritis and colitis, unspecified (principal); F11.21 Opioid dependence, in remission; K50.919 Crohn's disease, unspecified, with unspecified complications; Z72.0 Tobacco use; N83.291 Other ovarian cyst, right side; Z79.899 Other long term (current) drug therapy; Z91.040 Latex allergy status; Z88.2 Allergy status to sulfonamides
CPT/HCPCS: Q9963

== ENCOUNTER 2017-10-02 12:19 | Inpatient (IN) | payer OTHER ==
[2017-10-02 13:12] LABS: KETONE, URINE AUTO RFX NEGATIVE (NEGATIVE); MUCUS, URINE RFX SMALL (NEGATIVE); NITRITE, URINE AUTO RFX NEGATIVE (NEGATIVE); RBC, URINE AUTO RFX 11 /HPF (0-3); SPECIFIC GRAVITY UR AUTO RFX 1.024 (1.002-1.035); SQUAM EPITHELIAL CELL UR AURFX 6 /HPF (0-6); WBC, URINE AUTO RFX 2 /HPF (0-3)
[2017-10-02 13:16] LABS: LEUKOCYTE ESTERASE UR AUTO RFX TRACE (NEGATIVE)
[2017-10-02 13:25] LABS: BASO # 0.1 10^3/uL (0.0-0.2); BASO % 0.7 % (0.0-1.0); EOS # 1.1 10^3/uL (0.0-0.50); EOS % 9.7 % (0.0-3.0); HEMATOCRIT 34.4 % (36.0-47.0); HEMOGLOBIN 11.4 g/dl (12.0-15.5); IMMATURE GRANULOCYTE % 0.4 % (0-3.0); LYMPH # 1.9 10^3/uL (1.5-4.5); LYMPH % 16.7 % (24.0-44.0); MEAN CORPUSCULAR HEMOGLOBIN 27.2 pg (27.0-33.0); MEAN CORPUSCULAR HGB CONC 33.1 g/dl (32.0-36.5); MEAN CORPUSCULAR VOLUME 82.1 fl (80.0-96.0); MONO # 0.5 10^3/uL (0.0-0.8); MONO % 4.3 % (0.0-5.0); NEUTROPHILS # 7.7 10^3/uL (1.8-7.7); NEUTROPHILS % 68.2 % (36.0-66.0); PLATELET COUNT, AUTOMATED 253 10^3/uL (150-450); RED BLOOD COUNT 4.19 10^6/uL (4.00-5.40); RED CELL DISTRIBUTION WIDTH 15.8 % (11.5-14.5); WHITE BLOOD COUNT 11.3 10^3/uL (4.0-10.0)
[2017-10-02] MEDS: methylPREDNISolone INJ 125 MG/2 ML VIAL (J2930) IV (13:28)
[2017-10-02] MEDS: NS 1,000 ML IV (13:29)
[2017-10-02] MEDS: KETOROLAC 30 MG/ML VIAL (J1885) IV (13:29)
[2017-10-02 13:42] LABS: ALBUMIN 3.2 GM/DL (3.2-5.2); ALBUMIN/GLOBULIN RATIO 0.89 (1.00-1.93); ALKALINE PHOSPHATASE 84 U/L (45-117); ALT/SGPT 15 U/L (12-78); ANION GAP 5 MEQ/L (8-16); AST/SGOT 11 U/L (7-37); BILIRUBIN,DIRECT < 0.1 MG/DL (0.0-0.2); BILIRUBIN,TOTAL 0.2 MG/DL (0.2-1.0); BLOOD UREA NITROGEN 12 MG/DL (7-18); C REACTIVE PROTEIN QUANTITATIV 1.37 MG/DL (0.00-0.30); CALCIUM LEVEL 7.6 MG/DL (8.5-10.1); CARBON DIOXIDE LEVEL 28 MEQ/L (21-32); CHLORIDE LEVEL 106 MEQ/L (98-107); CREATININE FOR GFR 0.68 MG/DL (0.55-1.30); GLOMERULAR FILTRATION RATE > 60.0 (>58); GLUCOSE, FASTING 124 MG/DL (70-100); LIPASE 46 U/L (73-393); POTASSIUM SERUM 3.1 MEQ/L (3.5-5.1); SODIUM LEVEL 139 MEQ/L (136-145); TOTAL PROTEIN 6.8 GM/DL (6.4-8.2)
[2017-10-02 13:45] LABS: ERYTHROCYTE SEDIMENTATION RATE 28 mm/hr (0-20)
[2017-10-02] MEDS ORDERED: MORPHINE 4 MG/ML 1ML VIAL/SYRINGE (J2270) IV (14:45)
[2017-10-02] MEDS ORDERED: KETOROLAC 30 MG/ML VIAL (J1885) IV (15:00)
[2017-10-02] MEDS: PIPERACILLIN/TAZOBACTAM SOD 3.375 GM in D5W MINI-BAG PLUS 50 ML IV ×2 (15:40→21:13)
[2017-10-02 15:47] LABS: RETIC HEMOGLOBIN EQUIVALENT 31.1 pg (24-36); RETICULOCYTE # 71.1 10^9/L (17-77); RETICULOCYTE % 1.7 % (0.5-1.5)
[2017-10-02 15:49] LABS: MAGNESIUM LEVEL 1.9 MG/DL (1.8-2.4); TROPONIN I < 0.02 NG/ML (< 0.10)
[2017-10-02 15:57] LABS: CK-MB VALUE MASS 3.1 NG/ML (<3.6); CPK CREATINE PHOSPHOKINASE 131 U/L (26-192); FERRITIN 10 NG/ML (8-252); IRON (FE) 34 UG/DL (50-170); MB/CK RELATIVE INDEX 2.36 (< OR =4); PERCENT SATURATION 11.3 % (13.2-45.0); TOTAL IRON BINDING CAPACITY 300 UG/DL (250-450)
[2017-10-02] MEDS: POTASSIUM CHLORIDE 10 MEQ SR TABLET PO (15:58)
[2017-10-02] MEDS: PANTOPRAZOLE 40MG INJ (PROTONIX) (C9113) IV (17:11)
[2017-10-02] MEDS: NORCO, ANEXSIA 5/325MG TABLET (HYDROcodone/ACETAMINOPHEN) PO (17:13)
[2017-10-02] MEDS: KCL 20MEQ IN D5/0.45NS 1000ML 1,000 ML IV (17:13)
[2017-10-02] MEDS: LACTOBACILLUS ACIDOPHILUS CAP (BACID) PO (21:13)
[2017-10-02] MEDS: HEPARIN SOD (PORCINE) 5000 UNITS/ML VIAL SC (21:13)
[2017-10-03] MEDS: NORCO, ANEXSIA 5/325MG TABLET (HYDROcodone/ACETAMINOPHEN) PO ×2 (01:02→09:37)
[2017-10-03] MEDS: PIPERACILLIN/TAZOBACTAM SOD 3.375 GM in D5W MINI-BAG PLUS 50 ML IV ×4 (03:14→21:41)
[2017-10-03] MEDS: HEPARIN SOD (PORCINE) 5000 UNITS/ML VIAL SC ×3 (05:17→21:40)
[2017-10-03] MEDS: KCL 20MEQ IN D5/0.45NS 1000ML 1,000 ML IV ×2 (05:18→13:53)
[2017-10-03] MEDS: ONDANSETRON 4MG/2ML VIAL (J2405) IV ×2 (05:20→22:58)
[2017-10-03] MEDS: NICOTINE POLACRILEX 2 MG GUM PO ×3 (05:24→21:40)
[2017-10-03 06:31] LABS: ALBUMIN 2.9 GM/DL (3.2-5.2); ALBUMIN/GLOBULIN RATIO 0.73 (1.00-1.93); ALKALINE PHOSPHATASE 78 U/L (45-117); ALT/SGPT 13 U/L (12-78); AMYLASE 16 U/L (25-115); ANION GAP 6 MEQ/L (8-16); AST/SGOT 8 U/L (7-37); BILIRUBIN,TOTAL 0.2 MG/DL (0.2-1.0); BLOOD UREA NITROGEN 7 MG/DL (7-18); CALCIUM LEVEL 7.8 MG/DL (8.5-10.1); CARBON DIOXIDE LEVEL 26 MEQ/L (21-32); CHLORIDE LEVEL 107 MEQ/L (98-107); CREATININE FOR GFR 0.66 MG/DL (0.55-1.30); GLOMERULAR FILTRATION RATE > 60.0 (>58); GLUCOSE, FASTING 131 MG/DL (70-100); LIPASE 35 U/L (73-393); POTASSIUM SERUM 3.8 MEQ/L (3.5-5.1); SODIUM LEVEL 139 MEQ/L (136-145); TOTAL PROTEIN 6.9 GM/DL (6.4-8.2)
[2017-10-03 08:02] LABS: BASO % 0.1 % (0.0-1.0); HEMATOCRIT 35.2 % (36.0-47.0); HEMOGLOBIN 11.7 g/dl (12.0-15.5); IMMATURE GRANULOCYTE % 0.7 % (0-3.0); LYMPH # 1.5 10^3/uL (1.5-4.5); LYMPH % 11.2 % (24.0-44.0); MEAN CORPUSCULAR HEMOGLOBIN 27.3 pg (27.0-33.0); MEAN CORPUSCULAR HGB CONC 33.2 g/dl (32.0-36.5); MEAN CORPUSCULAR VOLUME 82.2 fl (80.0-96.0); MONO # 0.4 10^3/uL (0.0-0.8); NEUTROPHILS # 11.4 10^3/uL (1.8-7.7); PLATELET COUNT, AUTOMATED 292 10^3/uL (150-450); RED BLOOD COUNT 4.28 10^6/uL (4.00-5.40); RED CELL DISTRIBUTION WIDTH 15.9 % (11.5-14.5); WHITE BLOOD COUNT 13.5 10^3/uL (4.0-10.0)
[2017-10-03] MEDS: LACTOBACILLUS ACIDOPHILUS CAP (BACID) PO ×2 (09:36→21:40)
[2017-10-03] MEDS: BUPRENORPHINE/NALOXONE 8-2MG SUBLINGUAL TABLET(SUBOXONE) SL ×2 (09:36→10:07)
[2017-10-03 09:39] LABS: H PYLORI QUALITATIVE IgG DETECTED (NEGATIVE)
[2017-10-03 09:40] LABS: CONTROL LINE HPYORI INT CTR LINE PRESENT
[2017-10-03] MEDS ORDERED: PILL CRUSHER/CUTTER 1 EACH XX (10:00)
[2017-10-03] MEDS: KETOROLAC 30 MG/ML VIAL (J1885) IV ×2 (12:09→18:18)
[2017-10-03] MEDS: ACETAMINOPHEN TAB 650MG DOSE (2X325MG) PO ×2 (13:53→21:40)
[2017-10-03] MEDS: PANTOPRAZOLE 40MG INJ (PROTONIX) (C9113) IV (16:52)
[2017-10-03] MEDS: MOM 30ML SUSPENSION UDC PO (19:34)
[2017-10-03] MEDS: GOLYTELY SOLN 4000 ML BTL PO (19:35)
[2017-10-04] MEDS: KETOROLAC 30 MG/ML VIAL (J1885) IV ×3 (00:48→18:12)
[2017-10-04] MEDS: PIPERACILLIN/TAZOBACTAM SOD 3.375 GM in D5W MINI-BAG PLUS 50 ML IV ×4 (04:11→21:06)
[2017-10-04] MEDS: GOLYTELY SOLN 4000 ML BTL PO (05:04)
[2017-10-04] MEDS: ONDANSETRON 4MG/2ML VIAL (J2405) IV ×2 (05:10→15:05)
[2017-10-04] MEDS: HEPARIN SOD (PORCINE) 5000 UNITS/ML VIAL SC ×3 (05:14→21:07)
[2017-10-04 06:38] LABS: HEMOGLOBIN 11.2 g/dl (12.0-15.5); MEAN CORPUSCULAR HEMOGLOBIN 27.1 pg (27.0-33.0); MEAN CORPUSCULAR HGB CONC 32.9 g/dl (32.0-36.5); MEAN CORPUSCULAR VOLUME 82.3 fl (80.0-96.0); PLATELET COUNT, AUTOMATED 274 10^3/uL (150-450); RED BLOOD COUNT 4.13 10^6/uL (4.00-5.40); RED CELL DISTRIBUTION WIDTH 16.1 % (11.5-14.5); WHITE BLOOD COUNT 9.4 10^3/uL (4.0-10.0)
[2017-10-04 06:50] LABS: ANION GAP 5 MEQ/L (8-16); BLOOD UREA NITROGEN 4 MG/DL (7-18); CALCIUM LEVEL 7.5 MG/DL (8.5-10.1); CARBON DIOXIDE LEVEL 28 MEQ/L (21-32); CHLORIDE LEVEL 104 MEQ/L (98-107); GLOMERULAR FILTRATION RATE > 60.0 (>58); GLUCOSE, FASTING 110 MG/DL (70-100); POTASSIUM SERUM 3.4 MEQ/L (3.5-5.1); SODIUM LEVEL 137 MEQ/L (136-145)
[2017-10-04] MEDS: LACTOBACILLUS ACIDOPHILUS CAP (BACID) PO ×2 (08:03→21:06)
[2017-10-04] MEDS: BUPRENORPHINE/NALOXONE 8-2MG SUBLINGUAL TABLET(SUBOXONE) SL (08:03)
[2017-10-04] MEDS: FLEET ENEMA PR (08:15)
[2017-10-04] MEDS: MAGNESIUM CITRATE 300 ML BTL PO (08:15)
[2017-10-04] MEDS: POTASSIUM CHLORIDE 10 MEQ SR TABLET PO (08:16)
[2017-10-04] MEDS ORDERED: PROPOFOL 200 MG/20 ML VIAL As Ordered (12:41)
[2017-10-04] MEDS: FERROUS GLUCONATE 324 MG TAB PO (15:05)
[2017-10-04] MEDS: PANTOPRAZOLE 40MG INJ (PROTONIX) (C9113) IV (17:01)
[2017-10-04] MEDS: MIRALAX *UNIT DOSE* 17GM PACKET PO (21:06)
[2017-10-05] MEDS: KETOROLAC 30 MG/ML VIAL (J1885) IV ×3 (00:18→17:36)
[2017-10-05] MEDS: PIPERACILLIN/TAZOBACTAM SOD 3.375 GM in D5W MINI-BAG PLUS 50 ML IV (04:29)
[2017-10-05] MEDS: HEPARIN SOD (PORCINE) 5000 UNITS/ML VIAL SC ×3 (04:29→22:01)
[2017-10-05] MEDS: ONDANSETRON 4MG/2ML VIAL (J2405) IV (04:34)
[2017-10-05] MEDS: NICOTINE POLACRILEX 2 MG GUM PO ×3 (06:50→20:03)
[2017-10-05 07:03] LABS: HEMATOCRIT 35.7 % (36.0-47.0); MEAN CORPUSCULAR HEMOGLOBIN 27.2 pg (27.0-33.0); MEAN CORPUSCULAR HGB CONC 33.6 g/dl (32.0-36.5); PLATELET COUNT, AUTOMATED 259 10^3/uL (150-450); RED BLOOD COUNT 4.41 10^6/uL (4.00-5.40); RED CELL DISTRIBUTION WIDTH 15.6 % (11.5-14.5); WHITE BLOOD COUNT 6.8 10^3/uL (4.0-10.0)
[2017-10-05 07:18] LABS: ANION GAP 6 MEQ/L (8-16); BLOOD UREA NITROGEN 6 MG/DL (7-18); CALCIUM LEVEL 8.3 MG/DL (8.5-10.1); CARBON DIOXIDE LEVEL 29 MEQ/L (21-32); CHLORIDE LEVEL 102 MEQ/L (98-107); CREATININE FOR GFR 0.58 MG/DL (0.55-1.30); GLOMERULAR FILTRATION RATE > 60.0 (>58); GLUCOSE, FASTING 91 MG/DL (70-100); SODIUM LEVEL 137 MEQ/L (136-145)
[2017-10-05] MEDS: MIRALAX *UNIT DOSE* 17GM PACKET PO ×2 (08:40→20:03)
[2017-10-05] MEDS: LACTOBACILLUS ACIDOPHILUS CAP (BACID) PO ×2 (09:50→20:03)
[2017-10-05] MEDS: FERROUS GLUCONATE 324 MG TAB PO ×2 (09:50→10:52)
[2017-10-05] MEDS: amLODIPine 5 MG TAB PO (09:51)
[2017-10-05] MEDS: POTASSIUM CHLORIDE 10 MEQ SR TABLET PO ×2 (09:52→10:51)
[2017-10-05] MEDS: BUPRENORPHINE/NALOXONE 8-2MG SUBLINGUAL TABLET(SUBOXONE) SL (09:55)
[2017-10-05] MEDS: MOXIFLOXACIN 400 MG TAB PO (12:36)
[2017-10-05] MEDS: PANTOPRAZOLE 40MG INJ (PROTONIX) (C9113) IV (17:36)
[2017-10-06 00:07] LABS: ANCA-ATYPICAL <1:20 titer (Neg:<1:20); ANTI-SACCHAROMYCES CEREV. IgA <20.0 Units (0.0-24.9); ANTI-SACCHAROMYCES CEREV. IgG <20.0 Units (0.0-24.9); CYTOPLASMIC NEUTROP AB ANCA-C <1:20 titer (Neg:<1:20); H PYLORI SERUM QUANT IGA <9.0 units (0.0-8.9); H PYLORI SERUM QUANT IGM <9.0 units (0.0-8.9); PERINUCLEAR AB ANCA-P <1:20 titer (Neg:<1:20)
[2017-10-06] MEDS: KETOROLAC 30 MG/ML VIAL (J1885) IV ×2 (02:26→08:53)
[2017-10-06] MEDS: HEPARIN SOD (PORCINE) 5000 UNITS/ML VIAL SC (06:18)
[2017-10-06] MEDS: MOXIFLOXACIN 400 MG TAB PO (06:19)
[2017-10-06 07:27] LABS: HEMATOCRIT 37.6 % (36.0-47.0); HEMOGLOBIN 12.4 g/dl (12.0-15.5); MEAN CORPUSCULAR HEMOGLOBIN 26.8 pg (27.0-33.0); MEAN CORPUSCULAR VOLUME 81.4 fl (80.0-96.0); PLATELET COUNT, AUTOMATED 264 10^3/uL (150-450); RED BLOOD COUNT 4.62 10^6/uL (4.00-5.40); RED CELL DISTRIBUTION WIDTH 15.6 % (11.5-14.5); WHITE BLOOD COUNT 7.7 10^3/uL (4.0-10.0)
[2017-10-06] MEDS: ONDANSETRON 4MG/2ML VIAL (J2405) IV (07:39)
[2017-10-06 08:02] LABS: ANION GAP 6 MEQ/L (8-16); BLOOD UREA NITROGEN 10 MG/DL (7-18); CALCIUM LEVEL 8.6 MG/DL (8.5-10.1); CARBON DIOXIDE LEVEL 29 MEQ/L (21-32); CHLORIDE LEVEL 102 MEQ/L (98-107); CREATININE FOR GFR 0.63 MG/DL (0.55-1.30); GLOMERULAR FILTRATION RATE > 60.0 (>58); GLUCOSE, FASTING 98 MG/DL (70-100); SODIUM LEVEL 137 MEQ/L (136-145)
[2017-10-06] MEDS: NICOTINE POLACRILEX 2 MG GUM PO (08:51)
[2017-10-06] MEDS: BUPRENORPHINE/NALOXONE 8-2MG SUBLINGUAL TABLET(SUBOXONE) SL (08:52)
[2017-10-06] MEDS: LACTOBACILLUS ACIDOPHILUS CAP (BACID) PO (08:52)
[2017-10-06] MEDS: POTASSIUM CHLORIDE 10 MEQ SR TABLET PO (08:52)
[2017-10-06] MEDS: MIRALAX *UNIT DOSE* 17GM PACKET PO (08:52)
[2017-10-06] MEDS: amLODIPine 5 MG TAB PO (08:55)
== END 2017-10-06 12:23 | disposition home or self-care (01) | DRG 246 ==
LOC: M PED 10-04 18:26 → M ED 12:19 → M ED INP 14:44 → M MSPAV 16:43
PROC: 0DBM8ZX Excision of Descending Colon, Via Natural or Artificial Opening Endoscopic, Diagnostic (ICD-10-PCS; principal; 2017-10-04 06:50)
PROC: 0DBN8ZX Excision of Sigmoid Colon, Via Natural or Artificial Opening Endoscopic, Diagnostic (ICD-10-PCS; 2017-10-04 06:50)
DX: K55.9 Vascular disorder of intestine, unspecified (principal); E87.8 Other disorders of electrolyte and fluid balance, not elsewhere classified; F11.20 Opioid dependence, uncomplicated; F32.9 Major depressive disorder, single episode, unspecified; F17.210 Nicotine dependence, cigarettes, uncomplicated; D50.0 Iron deficiency anemia secondary to blood loss (chronic); L40.50 Arthropathic psoriasis, unspecified; K58.9 Irritable bowel syndrome, unspecified; E87.6 Hypokalemia; Z91.040 Latex allergy status; Z88.2 Allergy status to sulfonamides; Z79.899 Other long term (current) drug therapy

== ENCOUNTER 2018-02-07 19:14 | Emergency (ER) | payer OTHER ==
[2018-02-07] MEDS: IBUPROFEN 600 MG TAB PO (20:22)
[2018-02-07] MEDS: CLINDAMYCIN 150 MG CAP PO (20:22)
== END 2018-02-07 20:33 | disposition home or self-care (01) ==
LOC: M ED 19:14
DX: K04.7 Periapical abscess without sinus (principal); G50.1 Atypical facial pain; R22.0 Localized swelling, mass and lump, head; K08.89 Other specified disorders of teeth and supporting structures; K58.9 Irritable bowel syndrome, unspecified; Z72.0 Tobacco use
CPT/HCPCS: 99283

== ENCOUNTER 2019-01-05 12:00 | Emergency (ER) | payer OTHER ==
[~2019-01-05] VITALS: Ht 157.5 cm; Wt 81.1 kg
[~2019-01-05 12:00] MED LIST changes: +AMLO5TAB6 PO; +AVEL1TAB3 PO; +BENT10CA PO; +CIPR-249 PO; +CIPR1TAB20 PO; +CLEO300C2 PO; +DRIS50003 PO; +FERR1TAB8 PO; +FERR32TA PO; +FLAG500T PO; +FLUO10CA15 PO; +FLUO20CA19 PO; -GASTROGRAFIN SOLUTION 30ML (Q9963); +IBUP-1114 PO; +IBUP1TAB6 PO; +IBUP80TA PO; +KETO10TAB; +KETO10TAB PO; +MAGICMW SSP; +MAGN250T14 PO; +MAPA500T2 PO; +METR-265 PO; +PRENTAB9 PO; +PROZ10CA7 PO; +PYRI1TAB5 PO; +REGL10TA6 PO; +SUBO8MIS SL; +VANC1CAP6 PO; +WELLTAB38 PO; +ZOFR4TAB14 PO
[2019-01-05] MEDS ORDERED: BENZOCAINE 20% GEL 9GM TUBE (ANBESOL MAX STRENGTH) TOP ONE (13:45)
[2019-01-05] MEDS ORDERED: LIDOCAINE 2% W/ EPINEPHRINE 1.7 ML DENTAL INJ SM ONE (13:45)
[2019-01-05 14:15] LABS: BASO # 0.1 10^3/uL (0.0-0.2); EOS # 0.2 10^3/uL (0.0-0.5); HEMATOCRIT 31.4 % (36.0-47.0); MEAN CORPUSCULAR HEMOGLOBIN 25.8 pg (27.0-33.0); MEAN CORPUSCULAR HGB CONC 31.8 g/dl (32.0-36.5); MEAN CORPUSCULAR VOLUME 81.1 fl (80.0-96.0); MONO # 0.3 10^3/uL (0.0-0.8); MONO % 5.7 % (0.0-5.0); NEUTROPHILS # 3.2 10^3/uL (1.5-8.5); NEUTROPHILS % 55.3 % (36.0-66.0); PLATELET COUNT, AUTOMATED 225 10^3/uL (150-450); RED BLOOD COUNT 3.87 10^6/uL (4.00-5.40); WHITE BLOOD COUNT 5.8 10^3/uL (4.0-10.0)
[2019-01-05] MEDS ORDERED: AUGM875T28 PO (16:09)
[2019-01-05] MEDS ORDERED: MAGICMW SSP ×2 (16:09→16:11)
[2019-01-05] MEDS ORDERED: IBUP80TA PO (16:10)
[2019-01-05 17:27] LABS: APPEARANCE, URINE CLEAR (CLEAR); BACTERIA, URINE AUTO NEGATIVE (NEGATIVE); BILIRUBIN, URINE AUTO NEGATIVE (NEGATIVE); BLOOD, URINE BLOOD 1+ (NEGATIVE); COLOR, URINE STRAW (YELLOW); GLUCOSE, URINE (UA) AUTO NEGATIVE (NEGATIVE); KETONE, URINE AUTO NEGATIVE (NEGATIVE); LEUKOCYTE ESTERASE, URINE AUTO NEGATIVE (NEGATIVE); NITRITE, URINE AUTO NEGATIVE (NEGATIVE); PROTEIN, URINE AUTO NEGATIVE (NEGATIVE); RBC, URINE AUTO 8 /HPF (0-3); SPECIFIC GRAVITY URINE AUTO 1.009 (1.002-1.035); SQUAMOUS EPITHELIAL CELL UR AU 2 /HPF (0-6); UROBILINOGEN, URINE AUTO 0.2 mg/dL (0.0-2.0); WBC, URINE AUTO 1 /HPF (0-3)
[2019-01-05] MEDS ORDERED: CHLO125TA PO (18:20)
[2019-01-05 18:23] VITALS: BP 172/102
--- NOTE | 2019-01-05 19:38 | ECGEPIP ---
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
== END 2019-01-05 18:45 | disposition home or self-care (01) ==
LOC: M ED 12:00
DX: K04.7 Periapical abscess without sinus (principal); K02.9 Dental caries, unspecified; R71.8 Other abnormality of red blood cells; R03.0 Elevated blood-pressure reading, without diagnosis of hypertension; I51.7 Cardiomegaly; R00.1 Bradycardia, unspecified; Z86.2 Personal history of diseases of the blood and blood-forming organs and certain disorders involving the immune mechanism; F41.9 Anxiety disorder, unspecified; F19.11 Other psychoactive substance abuse, in remission; F17.210 Nicotine dependence, cigarettes, uncomplicated; Z88.2 Allergy status to sulfonamides; Z91.040 Latex allergy status; Z79.899 Other long term (current) drug therapy

== ENCOUNTER 2019-02-11 11:15 | Emergency (ER) | payer OTHER ==
[~2019-02-11] VITALS: Ht 157.5 cm; Wt 78.8 kg
[~2019-02-11 11:15] MED LIST changes: +AUGM875T28 PO; +CHLO125TA PO; -FLUO10CA15 PO; +FLUO10CA8 PO
[2019-02-11] MEDS ORDERED: BENZOCAINE 10% 9GM TUBE (ANBESOL) MT STA (11:53)
[2019-02-11] MEDS ORDERED: BUPIVACAINE HCL 0.5% 10 ML VIAL SC ONE (12:00)
[2019-02-11] MEDS ORDERED: LIDOCAINE W/EPINEPHRINE 1% 20ML VIAL SC ONE (12:00)
[2019-02-11] MEDS ORDERED: CLEO300C2 PO (12:35)
[2019-02-11] MEDS ORDERED: IBUP-1022 PO (12:35)
[2019-02-11] MEDS ORDERED: CHLO25TA PO (12:35)
[2019-02-11] MEDS ORDERED: CLINDAMYCIN 150 MG CAP PO ONE (12:45)
[2019-02-11] MEDS ORDERED: IBUPROFEN 600 MG TAB PO ONE (12:45)
[2019-02-11] MEDS ORDERED: CHLORTHALIDONE 25 MG TAB PO ONE (12:45)
[2019-02-11 12:54] VITALS: BP 157/91
== END 2019-02-11 12:57 | disposition home or self-care (01) ==
LOC: M ED 11:15
DX: K04.7 Periapical abscess without sinus (principal); K08.89 Other specified disorders of teeth and supporting structures; I10 Essential (primary) hypertension; F11.10 Opioid abuse, uncomplicated; F17.200 Nicotine dependence, unspecified, uncomplicated; Z79.899 Other long term (current) drug therapy; Z88.2 Allergy status to sulfonamides; Z91.040 Latex allergy status

== ENCOUNTER 2019-11-20 10:41 | Emergency (ER) | payer OTHER ==
[~2019-11-20] VITALS: Ht 157.5 cm; Wt 80.9 kg
[2019-11-20 10:41] VITALS: BP 179/78
[~2019-11-20 10:41] MED LIST changes: +CHLO25TA PO; +FLUO10CA15 PO; -FLUO10CA8 PO; -FLUO20CA19 PO; +FLUO20CA22 PO; +IBUP-1022 PO
== END 2019-11-20 12:42 | disposition home or self-care (01) ==
LOC: M ED 10:41
DX: K08.89 Other specified disorders of teeth and supporting structures (principal); Z88.2 Allergy status to sulfonamides; Z91.040 Latex allergy status; F17.200 Nicotine dependence, unspecified, uncomplicated; Z79.899 Other long term (current) drug therapy

== ENCOUNTER 2020-03-23 13:52 | Emergency (ER) | payer OTHER ==
[~2020-03-23] VITALS: Ht 157.5 cm; Wt 82.5 kg
[~2020-03-23 13:52] MED LIST changes: +AMLO1TAB24 PO; -AMLO5TAB6 PO; -FLUO10CA15 PO; +FLUO10CA16 PO
[2020-03-23] MEDS ORDERED: cefTRIAXone SOD 1GM VIAL (J0696 PER 250MG) IM ONE (14:45)
[2020-03-23] MEDS ORDERED: LIDOCAINE 1% SDV 5ML VIAL DILUENT ONE (14:45)
[2020-03-23] MEDS ORDERED: BENZOCAINE 20% GEL 9GM TUBE (ANBESOL MAX STRENGTH) TOP ONE (14:45)
[2020-03-23] MEDS ORDERED: KETOROLAC 60MG 2ML VIAL IM ONE (14:45)
[2020-03-23] MEDS ORDERED: AUGM875T28 PO (14:55)
[2020-03-23] MEDS ORDERED: MACR100C43 PO (14:55)
[2020-03-23 15:23] VITALS: BP 170/72
== END 2020-03-23 15:25 | disposition home or self-care (01) ==
LOC: M ED 13:52
DX: K02.9 Dental caries, unspecified (principal); N39.0 Urinary tract infection, site not specified; I10 Essential (primary) hypertension; Z88.2 Allergy status to sulfonamides; Z91.040 Latex allergy status; Z79.899 Other long term (current) drug therapy
CPT/HCPCS: 81001; 87086; 96372; 99283; J0696; J1885

== ENCOUNTER → 2022-07-06 | Outpatient (CLI) | payer OTHER ==
[~2022-07-06] MED LIST changes: -FLUO10CA16 PO; +FLUO10CA18 PO; +LIDO15SO4 PO; +MACR100C43 PO; +PRED20TA PO
[2022-07-06 10:37] LABS: BASO # 0.1 10^3/uL (0.0-0.2); BASO % 1.3 % (0.0-1.0); EOS # 0.3 10^3/uL (0.0-0.5); EOS % 7.3 % (0.0-3.0); HEMATOCRIT 22.1 % (36.0-47.0); LYMPH # 1.1 10^3/uL (1.5-5.0); LYMPH % 27.3 % (24.0-44.0); MEAN CORPUSCULAR HEMOGLOBIN 15.9 pg (27.0-33.0); MEAN CORPUSCULAR HGB CONC 24.9 g/dl (32.0-36.5); MEAN CORPUSCULAR VOLUME 64.1 fl (80.0-96.0); MONO # 0.2 10^3/uL (0.0-0.8); MONO % 5.5 % (2.0-8.0); NEUTROPHILS # 2.3 10^3/uL (1.5-8.5); NEUTROPHILS % 58.1 % (36.0-66.0); PLATELET COUNT, AUTOMATED 216 10^3/uL (150-450); RED BLOOD COUNT 3.45 10^6/uL (4.00-5.40)
[2022-07-06 11:11] LABS: FERRITIN 3.4 NG/ML (7.3-270.7); TOTAL T3 108.5 NG/DL (60.0-181.0)
[2022-07-06 11:12] LABS: C REACTIVE PROTEIN QUANTITATIV < 0.40 MG/DL (<1.0); THYROID STIMULATING HORMONE 1.414 uIU/ML (0.55-4.78); TOTAL 25(OH) VITAMIN D 13.5 NG/ML (20.0-100.0)
[2022-07-06 11:14] LABS: VITAMIN B12 LEVEL 538 PG/ML (211-911)
[2022-07-06 11:15] LABS: ALBUMIN 3.2 G/DL (3.2-5.2); ALKALINE PHOSPHATASE 54 U/L (46-116); ALT/SGPT < 9 U/L (7.0-40); AST/SGOT 14 U/L (<34); BILIRUBIN,DIRECT 0.1 MG/DL (<0.4); BILIRUBIN,TOTAL 0.3 MG/DL (0.3-1.2); BLOOD UREA NITROGEN 16 MG/DL (9-23); CALCIUM LEVEL 7.9 MG/DL (8.5-10.1); CARBON DIOXIDE LEVEL 25 MMOL/L (20-31); CHLORIDE LEVEL 104 MMOL/L (98-107); CHOLESTEROL LEVEL 108 MG/DL (<200); CHOLESTEROL RISK RATIO 2.71 (<5); CREATININE FOR GFR 0.62 MG/DL (0.55-1.30); GLOMERULAR FILTRATION RATE > 60.0 (>58); GLUCOSE, FASTING 82 MG/DL (60-100); HDL CHOLESTEROL 39.8 MG/DL (>40); IRON (FE) 9 UG/DL (50-170); NON-HDL-C 68 MG/DL; POTASSIUM SERUM 3.7 MMOL/L (3.5-5.1); SODIUM LEVEL 135 MMOL/L (136-145); TOTAL PROTEIN 6.4 G/DL (5.7-8.2); TRIGLYCERIDES LEVEL 56 MG/DL (<150)
[2022-07-06 11:32] LABS: HEMOGLOBIN 5.5 g/dl (12.0-15.5)
[2022-07-06 12:10] LABS: ERYTHROCYTE SEDIMENTATION RATE 15 mm/hr (0-20)
[2022-07-07 13:07] LABS: ANTINUCLEAR ANTIBODIES DIRECT Negative (Negative)
== END ==
LOC: M LAB 09:26
DX: F11.21 Opioid dependence, in remission (principal)

== ENCOUNTER → 2022-10-27 | Outpatient (CLI) | payer OTHER ==
[~2022-10-27] MED LIST changes: +LIDO15SO PO; -LIDO15SO4 PO
[2022-10-27 12:15] LABS: BASO % 1.1 % (0.0-1.0); EOS # 0.1 10^3/uL (0.0-0.5); EOS % 2.6 % (0.0-3.0); LYMPH # 0.9 10^3/uL (1.5-5.0); LYMPH % 33.8 % (24.0-44.0); MEAN CORPUSCULAR HEMOGLOBIN 16.8 pg (27.0-33.0); MEAN CORPUSCULAR HGB CONC 25.9 g/dl (32.0-36.5); MEAN CORPUSCULAR VOLUME 64.7 fl (80.0-96.0); MONO # 0.2 10^3/uL (0.0-0.8); MONO % 7.4 % (2.0-8.0); NEUTROPHILS # 1.5 10^3/uL (1.5-8.5); NEUTROPHILS % 55.1 % (36.0-66.0); PLATELET COUNT, AUTOMATED 125 10^3/uL (150-450); RED BLOOD COUNT 2.92 10^6/uL (4.00-5.40); WHITE BLOOD COUNT 2.7 10^3/uL (4.0-10.0)
[2022-10-27 12:26] LABS: FERRITIN 4.9 NG/ML (7.3-270.7); FOLATE 7.03 NG/ML (>5.4)
[2022-10-27 12:27] LABS: TOTAL 25(OH) VITAMIN D 11.3 NG/ML (20.0-100.0)
[2022-10-27 12:42] LABS: HEMOGLOBIN 4.9 g/dl (12.0-15.5)
[2022-10-27 12:43] LABS: HEMATOCRIT 18.9 % (36.0-47.0)
== END ==
LOC: M LAB 11:32
PROVIDERS: ATTEND Registered Nurse Psychiatric/Mental Health
DX: D64.9 Anemia, unspecified (principal)

== ENCOUNTER → 2024-12-10 | Outpatient (CLI) | payer OTHER ==
[~2024-12-10] MED LIST changes: +FLUO-290 PO; +FLUO-365 PO; -FLUO10CA18 PO; -FLUO20CA22 PO; -LIDO15SO PO; +LIDO15SO8 PO; +PROZ10CA11 PO; -PROZ10CA7 PO
== END ==
LOC: M PLARAD 08:32
PROVIDERS: ATTEND Physician Assistant
DX: R91.1 Solitary pulmonary nodule (principal)
CPT/HCPCS: 78815; A9552